=== PATIENT | female | born 1950 | race Hispanic/Latino ===

== ENCOUNTER 2018-11-02 09:37 | Outpatient (CLI) | payer MEDICARE, OTHER ==
--- NOTE | 2018-11-02 12:45 | ULT ---
LEFT BREAST ULTRASOUND LIMITED: HISTORY: A 68-year-old female with a history of left breast pain near the region of the nipple. TECHNIQUE: Ultrasound examination performed of the left breast with attention to the retroareolar region. FINDINGS: There is dense echogenic breast tissue. No solid or cystic mass or abnormal fluid collection. IMPRESSION: Unremarkable left breast ultrasound with attention to the retroareolar region. No solid or cystic ma ss or abnormal fluid collection or other acute process. BI-RADS category 2-Benign findings. Continued annual follow-up mammograms. POS: OFF
== END 2018-11-02 09:38 | disposition home or self-care (01) ==
LOC: BICMAMMO 09:37
PROVIDERS: ATTEND Surgery
DX: N64.4 Mastodynia (principal); Z98.82 Breast implant status
CPT/HCPCS: 76642; 77066; G0279

== ENCOUNTER 2019-04-26 17:28 | Emergency (ER) | payer MEDICARE, OTHER ==
--- NOTE | 2019-04-26 20:45 | ULT ---
EXAM: Left lower extremity venous ultrasound HISTORY: Left lower extremity pain for 3 days COMPARISON: None TECHNIQUE: Multiplanar grayscale and color Doppler images were obtained in a left lower extremity momo ous ultrasound. Spectral analysis of the Doppler waveforms were performed. FINDINGS: The common femoral vein, profunda femoral vein, superficial femoral vein, and popliteal vei n are normal in appearance without visible thrombus. These vessels demonstrate normal compression, flow, and augmentation. The posterior tibial vein and greater saphenous vein are patent without evidence of thrombus. IMPRESSION: No evidence of DVT.
== END 2019-04-26 21:23 | disposition home or self-care (01) ==
LOC: ERS 17:28
DX: M79.89 Other specified soft tissue disorders (principal)
CPT/HCPCS: 36415; 80053; 80061; 81001; 82306; 85025; 85379

== ENCOUNTER 2019-09-12 10:12 | Outpatient (CLI) | payer MEDICARE, OTHER ==
--- NOTE | 2019-09-12 10:27 | RAD ---
XR Chest Pa Lat STANDARD HISTORY: Cough COMPARISON: None FINDINGS: The heart size is normal. The lungs are well expanded without focal areas of consolidation, pneumothorax or pleural effusions. IMPRESSION: No radiographic evidence of acute cardiopulmonary process.
== END 2019-09-12 10:13 | disposition home or self-care (01) ==
LOC: BICRAD 10:12
PROVIDERS: ATTEND Physician Assistant
DX: R05 Cough (principal)
CPT/HCPCS: 71046

== ENCOUNTER 2020-01-02 11:29 | Outpatient (CLI) | payer MEDICARE, OTHER ==
--- NOTE | 2020-01-02 12:03 | RAD ---
XR Chest Pa Lat STANDARD History: Cough Comparison: Radiograph August 2019 Findings: Lungs are clear. No pneumothorax or effusion. Cardiac silhouette and mediastinal contours a re similar. Mild reverse S-shaped scoliosis thoracolumbar spine. No acute osseous abnormality. Impression: No acute intrathoracic abnormality.
--- NOTE | 2020-01-02 12:05 | RAD ---
XR Thoracic Spine 3 V STANDARD History: Pain in thoracic spine Comparison: None. Findings: Mild reverse S-shaped scoliosis of lumbar spine. There is levoscoliosis of 17 degrees measu red from the inferior endplate of T1 to the inferior endplate of T5. Low-grade dextroscoliosis thoracolumbar junction measuring 4 degrees from the inferior endplate of T9 to the inferior endplate of L1. Impression: Mild reverse S-shaped scoliosis thoracolumbar spine as described. No acute fracture.
== END 2020-01-02 11:30 | disposition home or self-care (01) ==
LOC: BICRAD 11:29
PROVIDERS: ATTEND Physician Assistant
DX: M54.6 Pain in thoracic spine (principal); G89.29 Other chronic pain; R05 Cough; M41.9 Scoliosis, unspecified
CPT/HCPCS: 71046; 72072

== ENCOUNTER 2020-01-12 09:08 | Outpatient (CLI) | payer MEDICARE, OTHER ==
--- NOTE | 2020-01-12 11:08 | MRI ---
MR OF THE THORACIC SPINE WITHOUT CONTRAST INDICATION: Thoracic spine pain TECHNIQUE: Multiplanar multisequence MR images were obtained of the thoracic spine without contrast. Spine count series was provided. COMPARISON: Thoracic spine radiograph dated January 12, 2020 FINDINGS: Bone marrow signal intensity: Normal Spinal alignment: There is a mild S-shaped thoracolumbar scoliotic curve. Spinal alignment in the sag ittal projection is within normal limits. Spinal cord: Normal signal intensity and contour. Paravertebral soft tissues: Normal Vertebral levels: T1-T2: No appreciable central canal or neural foraminal narrowing is evident. T2-T3: No appreciable central canal or neural foraminal narrowing. T3-T4: No appreciable central canal or neural foraminal narrowing.. T4-T5: No appreciable central canal or neural foraminal narrowing. T5-T6: No appreciable central canal or neural foraminal narrowing. T6-T7: No appreciable central canal or neural foraminal narrowing. T7-T8: No appreciable central canal or neural foraminal narrowing. T8-T9: No appreciable central canal or neural foraminal narrowing. T9-T10: No appreciable central canal or neural foraminal narrowing. T10-T11: No appreciable central canal or neural foraminal narrowing. T11-T12: No appreciable central canal or neural foraminal narrowing. T12-L1: No appreciable central canal or neural foraminal narrowing. Additional findings: None. IMPRESSION: 1. No appreciable central canal or neural foraminal narrowing. 2. Mild S-shaped thoracolumbar scoliotic curve.
== END 2020-01-12 09:09 | disposition home or self-care (01) ==
LOC: BICMRI 09:08
PROVIDERS: ATTEND Physician Assistant
DX: M54.6 Pain in thoracic spine (principal); G89.29 Other chronic pain; M41.24 Other idiopathic scoliosis, thoracic region
CPT/HCPCS: 72146

== ENCOUNTER 2020-05-29 09:29 | Outpatient (CLI) | payer MEDICARE, OTHER ==
--- NOTE | 2020-05-29 10:38 | BD ---
EXAM: DEXA bone density examination HISTORY: 69-year-old postmenopausal female for screening COMPARISON: None FINDINGS: L1--bone mineral density 0.946 g/sq cm; T score -0.4 L2--bone mineral density 1.077 g/sq cm; T score 0.4 L3--bone mineral density 1.101 g/sq cm; T score 0.2 L4--bone mineral density 1.087 g/sq cm; T score 0.2 Total L1-L4--bone mineral density 1.056 g/sq cm; T score 0.1 Left femoral neck--bone mineral density0.838; T score -0.1 Total proximal left femur--bone mineral density 0.967; T score 0.2 IMPRESSION: Normal bone density.
--- NOTE | 2020-05-29 12:30 | MMO ---
Bilateral MAMMO Bilat Screen DDI+TOÑO. CLINICAL HISTORY: Patient is 69 years old and is seen for screening. The patient has no family history of breast cancer. The patient has no personal history of cancer. The patient has a history of bilateral Implants in 2013 - replaced and bilateral Implants in 2003. VIEWS: The views performed were: bilateral craniocaudal; bilateral mediolateral oblique; and bilateral Implant displaced with tomosynthesis. FILMS COMPARED: The present examination has been compared to prior imaging studies performed at [facility] on 11/02/2018, and at [facility] on 02/18/2016. This study has been interpreted with the assistance of computer-aided detection. MAMMOGRAM FINDINGS: The breasts are extremely dense, which may lower the sensitivity of mammography. Finding 1: There are stable benign appearing calcifications seen in both breasts. Finding 2: There is a nodule measuring 7 millimeters with obscured margins seen in the CC view only seen in the outer region of the left breast. Finding 3: There is a nodule measuring 4 millimeters with circumscribed margins seen in the MLO view only seen in the upper region of the left breast. IMPRESSION: FINDING 1: STABLE CALCIFICATIONS IN BOTH BREASTS ARE BENIGN. FINDING 2: NODULE IN THE OUTER REGION OF THE LEFT BREAST REQUIRES ADDITIONAL EVALUATION. ADDITIONAL PROJECTIONS (LEFT MEDIOLATERAL AND LEFT EXAGGERATED CRANIOCAUDAL SPOT COMPRESSION) ARE RECOMMENDED. AN ULTRASOUND EXAM IS RECOMMENDED IF NEEDED. ADDITIONAL IMAGING. FINDING 3: NODULE IN THE UPPER REGION OF THE LEFT BREAST REQUIRES ADDITIONAL EVALUATION. ADDITIONAL PROJECTIONS (LEFT MEDIOLATERAL OBLIQUE SPOT COMPRESSION AND LEFT MEDIOLATERAL) ARE RECOMMENDED. AN ULTRASOUND EXAM IS RECOMMENDED IF NEEDED. ADDITIONAL IMAGING. THE RESULTS OF THIS EXAM WERE SENT TO THE PATIENT. ACR BI-RADS Category 0 - Incomplete: Need additional imaging evaluation. [facility] will notify the patient of the need for additional imaging services. MAMMOGRAPHY NOTE: 1. A negative mammogram report should not delay a biopsy if a dominant of clinically suspicious mass is present. 2. Approximately 10% to 15% of breast cancers are not detected by mammography. 3. Adenosis and dense breasts may obscure an underlying neoplasm. Reported by: CHAGO CULLEN MD Electonically Signed: [id number]
== END 2020-05-29 09:30 | disposition home or self-care (01) ==
LOC: BICMAMMO 09:29
PROVIDERS: ATTEND Physician Assistant
DX: Z12.31 Encounter for screening mammogram for malignant neoplasm of breast (principal); Z13.820 Encounter for screening for osteoporosis; R92.1 Mammographic calcification found on diagnostic imaging of breast; N63.10 Unspecified lump in the right breast, unspecified quadrant; N63.20 Unspecified lump in the left breast, unspecified quadrant; Z78.0 Asymptomatic menopausal state; Z98.82 Breast implant status
CPT/HCPCS: 77063; 77067; 77080

== ENCOUNTER 2020-05-30 12:27 | Outpatient (CLI) | payer MEDICARE, OTHER ==
--- NOTE | 2020-05-30 13:50 | MMO ---
Left Breast MAMMO Unilat Diag DDI LT+TOÑO. CLINICAL HISTORY: Patient is 69 years old and is seen for additional evaluation requested from prior study. The patient has no family history of breast cancer. The patient has no personal history of cancer. The patient has a history of bilateral Implants in 2013 - replaced and bilateral Implants in 2003. VIEWS: The views performed were: left craniocaudal spot compression with tomosynthesis; left mediolateral oblique spot compression with tomosynthesis; left mediolateral with tomosynthesis; and left Implant displaced with tomosynthesis. FILMS COMPARED: The present examination has been compared to prior imaging studies performed at [facility] on 11/02/2018, 05/29/2020 and 05/30/2020, and at [facility] on 02/18/2016. This study has been interpreted with the assistance of computer-aided detection. MAMMOGRAM FINDINGS: The breast is extremely dense, which may lower the sensitivity of mammography. The mass seen at screening mammography is not visualized on the additional imaging performed. Ultrasound interrogation of the region of mammographic concern on the screening study demonstrates a hypoechoic mass that likely corresponds to the mammogram finding. IMPRESSION: FINDING IN THE LEFT BREAST IS SUSPICIOUS. AN ULTRASOUND-GUIDED BREAST BIOPSY IS RECOMMENDED. RESULTS AND RECOMMENDATIONS DISCUSSED WITH THE PATIENT AND QUESTIONS ANSWERED. THE RESULTS OF THIS EXAM WERE SENT TO THE PATIENT. ACR BI-RADS Category 4 - Suspicious abnormality - biopsy should be considered MAMMOGRAPHY NOTE: 1. A negative mammogram report should not delay a biopsy if a dominant of clinically suspicious mass is present. 2. Approximately 10% to 15% of breast cancers are not detected by mammography. 3. Adenosis and dense breasts may obscure an underlying neoplasm. Reported by: ALICE LEAL MD Electonically Signed: [id number]
--- NOTE | 2020-05-30 13:50 | ULT ---
EXAM: US Breast Limited Lt PROVIDED CLINICAL HISTORY: Abnormal mammogram COMPARISON: Concurrently performed diagnostic mammogram and screening mammogram of 05/29/2020 FINDINGS: Limited sonographic interrogation of the left breast in the region of mammographic concern was perfor med. There is a hypoechoic mass with slightly irregular borders at the 11:00 position of the left breast measuring approximately 5 to 6 mm, likely corresponding to the mammogram finding. This is imme diately superficial to the left breast implant capsule. IMPRESSION: Hypoechoic mass is demonstrated, for which ultrasound-guided biopsy is recommended. Results and recom mendations discussed with the patient and questions answered. BI-RADS 4 -- suspicious abnormality, biopsy recommended
== END 2020-05-30 12:28 | disposition home or self-care (01) ==
LOC: BICMAMMO 12:27
PROVIDERS: ATTEND Physician Assistant
DX: R92.8 Other abnormal and inconclusive findings on diagnostic imaging of breast (principal); N63.22 Unspecified lump in the left breast, upper inner quadrant; Z98.82 Breast implant status
CPT/HCPCS: 76642; 77065; G0279

== ENCOUNTER 2020-10-29 11:08 | Emergency (ER) | payer MEDICARE, OTHER ==
--- NOTE | 2020-10-29 14:22 | RAD ---
PORTABLE CHEST: INDICATION: Fever, cough. COMPARISON: 01/02/2020. FINDINGS: There are diffuse bilateral patchy and hazy infiltrates more prominent in the mid and lower lung fiel ds bilaterally. Heart and mediastinum unremarkable. IMPRESSION: Bilateral infiltrates. POS: AGW
[2020-10-29] MEDS ORDERED: Ketorolac Tromethamine 30 MG/ML VIAL ONE (16:14)
[2020-10-29] MEDS ORDERED: Dexamethasone 4 mg/ml Vial ONE (16:14)
[2020-10-29 16:15] LABS: Hemoglobin 12.3 g/dL (12.0-16.0); Mean Corpuscular HGB CONC 32.4 g/dL (32.0-36.0); Mean Corpuscular Hemoglobin 29.8 pg (27.0-31.0); Mean Corpuscular Volume 91.8 fL (78.0-98.0); Mean Platelet Volume 7.5 fL (7.4-10.4); Platelet Count 297 thou/uL (130-400); RBC Distribution Width 12.3 % (11.5-14.5); Red Blood Cell (RBC) Count 4.14 mill/uL (4.20-5.40); White Blood Cell (WBC) Count 4.5 thou/uL (4.8-10.8)
[2020-10-29 16:33] LABS: Band 25 % (5-11); Lymphocytes 10 % (21-51); MDiff Complete? YES; Metamyelocyte 1 % (0-0); Monocytes 18 % (0-10); Myelocyte 1 % (0-0); Neutrophil 38 % (42-75); Platelet Morphology Comment Appears Adequate; Polychromasia SLIGHT = 2-3 cells (100X) (0-2/hpf); Reactive Lymphocytes 7 % (0-10)
[2020-10-29 16:35] LABS: ALT (SGPT) 34 U/L (8-55); AST (SGOT) 31 U/L (5-34); Albumin 3.5 g/dL (3.4-4.8); Alkaline Phosphatase 331 U/L (40-110); Anion Gap 15 mmol/L (10-20); BUN (Urea Nitrogen) 14 mg/dL (9.8-20.1); Bilirubin, Total 0.5 mg/dL (0.2-1.2); Calc. Creatinine Clearance 0 mL/min (70-130); Calcium 8.2 mg/dL (7.8-10.44); Carbon Dioxide 28 mmol/L (23-31); Chloride 97 mmol/L (98-107); Globulin 3.2 g/dL (2.4-3.5); Glucose 101 mg/dL (80-115); Potassium 4.1 mmol/L (3.5-5.1); Protein, Total 6.7 g/dL (6.0-8.3); Sodium 136 mmol/L (136-145)
[2020-10-29] MEDS ORDERED: Ondansetron PF 4 MG/2 ML Vial ONE (16:57)
== END 2020-10-29 17:08 | disposition home or self-care (01) ==
LOC: ERS 11:08
DX: U07.1 COVID-19 (principal); J12.82 Pneumonia due to coronavirus disease 2019
CPT/HCPCS: 36415; 71045; 80053; 85025; 93005; 96374; 96375; J1100; J1885; J2405

== ENCOUNTER 2020-11-01 12:48 | Inpatient (IN) | payer MEDICARE, OTHER ==
[2020-11-01 13:34] LABS: Hemoglobin 13.7 g/dL (12.0-16.0); Mean Corpuscular HGB CONC 33.3 g/dL (32.0-36.0); Mean Corpuscular Volume 90.3 fL (78.0-98.0); Mean Platelet Volume 7.6 fL (7.4-10.4); Platelet Count 548 thou/uL (130-400); RBC Distribution Width 12.3 % (11.5-14.5); Red Blood Cell (RBC) Count 4.56 mill/uL (4.20-5.40); White Blood Cell (WBC) Count 10.9 thou/uL (4.8-10.8)
[2020-11-01] MEDS ORDERED: cefTRIAXone\\ROCEPHIN 1 GM VIAL ONE (13:37)
[2020-11-01] MEDS ORDERED: Ondansetron PF 4 MG/2 ML Vial ONE ×2 (13:37→16:59)
[2020-11-01] MEDS ORDERED: Azithromycin 500 MG VIAL ONE (13:37)
--- NOTE | 2020-11-01 13:45 | RAD ---
Chest one view HISTORY: Dyspnea. COMPARISON: 10/29/2020. FINDINGS: Cardiac silhouette is magnified by projection. Pulmonary vasculature are unremarkable. Mediastinum is midline. Ill-defined patchy predominantly peripheral areas of infiltrate throughout ea ch lung are similar in appearance to the prior exam. No lobar consolidation. No evidence of pneumothorax. IMPRESSION : Multifocal pneumonia. Stable appearance.
[2020-11-01] MEDS ORDERED: Iopamidol-370 76% 500 ML 1 ML ONE (13:55)
[2020-11-01 13:56] LABS: ALT (SGPT) 32 U/L (8-55); AST (SGOT) 32 U/L (5-34); Albumin 3.6 g/dL (3.4-4.8); Alkaline Phosphatase 291 U/L (40-110); Anion Gap 16 mmol/L (10-20); BUN (Urea Nitrogen) 18 mg/dL (9.8-20.1); Bilirubin, Total 0.4 mg/dL (0.2-1.2); Calc. Creatinine Clearance 0 mL/min (70-130); Calcium 8.7 mg/dL (7.8-10.44); Carbon Dioxide 26 mmol/L (23-31); Chloride 99 mmol/L (98-107); Globulin 3.8 g/dL (2.4-3.5); Glucose 115 mg/dL (80-115); Potassium 3.3 mmol/L (3.5-5.1); Protein, Total 7.4 g/dL (6.0-8.3); Sodium 138 mmol/L (136-145)
[2020-11-01 14:04] LABS: Band 3 % (5-11); Lymphocytes 14 % (21-51); MDiff Complete? YES; Metamyelocyte 2 % (0-0); Monocytes 15 % (0-10); Myelocyte 3 % (0-0); Neutrophil 63 % (42-75); Platelet Morphology Comment Appears Increased; RBC Morphology Normal
--- NOTE | 2020-11-01 15:27 | CT ---
CT ANGIOGRAM THORAX WITH IV CONTRAST AND 3-D RECONSTRUCTIONS CLINICAL INDICATION: Covid positive on 10/17/2020. Agent now reports worsening shortness of breath/dyspnea with dizziness and vomiting. COMPARISON: None FINDINGS: Pulmonary arteries: No filling defects are seen in the pulmonary arteries to suggest a pulmonary embo nick. Aorta: Minimal vascular calcifications. Thoracic aorta is normal in caliber without evidence of an ao rtic dissection. Lungs: Minimal bilateral pleural effusions are seen. There are scattered groundglass and patchy paren chymal airspace opacities seen bilaterally and diffusely throughout the lungs in a peripheral predominance in a pattern most suggestive of Covid pneumonia. The large airways are patent. Mediastinum: Trace pericardial effusion is present. No enlarged lymph nodes are seen by CT size crite farheen. Thyroid gland: Grossly normal in appearance where imaged. Osseous structures: Degenerative changes are seen in the spine. No suspicious lytic or sclerotic osse ous lesions are identified. Chest wall: Partial visualization of bilateral breast prostheses. Upper abdomen: Within normal limits for phase of imaging. IMPRESSION: 1. Covid pneumonia. 2. Minimal bilateral pleural effusions. 3. Trace pericardial effusion. 4. No CT evidence for pulmonary embolus.
[2020-11-01] MEDS ORDERED: Acetaminophen 650 MG Suppository PR PRN (16:55)
[2020-11-01] MEDS ORDERED: Albuterol Sulfate 2.5 mg/3 ml Neb NEB PRN (16:58)
[2020-11-01] MEDS ORDERED: Dexamethasone 10 MG/ML VIAL ONE (16:59)
[2020-11-01] MEDS ORDERED: Enoxaparin Sodium 40 MG/0.4 ML SYRINGE SC SCH (17:00)
[2020-11-01] MEDS ORDERED: PROVENTIL INHALER 6.7 G (200 INHALATIONS) INH PRN (17:15)
[2020-11-01] MEDS ORDERED: Dexamethasone 4 mg/ml Vial SLOW IVP SCH (17:15)
--- NOTE | 2020-11-01 17:24 | PDOC.HHP ---
Hospitalist HPI - History of Present Illness History of Present Illness: ADMISSION DATE: 11/01/2020 TIME OF ASSESSMENT: 1600 PRIMARY CARE PHYSICIAN: Alfredito Choi PA-C CHIEF COMPLAINT: Shortness of breath HPI: This is a 70-year-old woman who presents to the emergency department with complaints of progressively worsening shortness of breath. The patient states that her oxygen levels at home dropped to 88%. She states she first became unwell with a fever on 10/17/2020 and underwent Covid testing which came back positive. She has had an occasional cough but states it is mild and nonprod uctive. Denies any hemoptysis or chest pain. She does report having no shortness of breath before prompting a visit to the emergency department 3 days ago at which time she was prescribed azithromycin and a Medrol Dosepak as well as Tessalon Perles for her cough. The patient states that her symptoms continue to worsen and so she was seen by her primary care provider yesterday and was started on nebulizer treatments. The patient states that she has not noted any improvement and became concerned when she became hypoxic at home today. For some time she was using her 's supplemental oxygen which he received after being treated for Covid pneumonia. At present the patient states that she feels well as long as she is not moving about or speaking for long periods of time. States that she has been feeling lightheaded with minimal exertion. Again denies having any chest pain. She r eports having loose stools 3 days ago but that has resolved. She has had issues tolerating oral intake for the last 4 days and has had vomiting with any think she attempts to eat including Jell-O. Denies any urinary symptoms. No recent fevers chills or sweats but has general aching. ED COURSE: At initial presentation patient had sats of 86% on room air. She was placed on 3 L of O2 by nasal cannula and her sats improved to 96%. She has been tachypneic between 22 and 30. Chest x-ray was done showing multifocal pneumonia. Laboratory studies showed a white cell count of 10.9, hemoglobin 13.7, platelets 148, neutrophils 63, bands of 3. Lactic acid 1.2. Sodium 138, potassium 3.3, BUN 18, creatinine 0.72, GFR 80, alk phos 291, AST 32, ALT 32, total bilirubin n ormal. Glucose 115. D-dimer was elevated at 2.31. She subsequently underwent a CT angiogram of the chest which demonstrated Covid pneumonia, minimal bilateral pleural effusions and a trace pericardial effusion. No CT evidence for PE. She was started on IV antibiotics with Rocephin and azithromycin. She was given 10 mg of dexamethasone IV and received 1 L of normal saline. For nausea she rec eived ondansetron 4 mg IV x2. PAST MEDICAL HISTORY: 1. History of breast cancer PAST SURGICAL HISTORY: 1. Left lumpectomy 2. Neuroma removed from left foot 3. Breast augmentation in 2019 SOCIAL HISTORY: Patient denies any history of alcohol consumption, tobacco use or drug use. She lives at home with her . She is fully independent at baseline. FAMILY HISTORY: Noncontributory ALLERGIES: No known drug allergies CURRENT MEDICATIONS: 1. Azithromycin 2. Medrol dose back 3. Albuterol nebs 4. Tessalon Perles 5. Zofran ODT 6. Ibuprofen - Exam General Appearance: NAD General - other findings: VS: Temp 97.6, BP 158/90, HR 69, RR 25, O2 sat 96% on 2 L by nasal cannula Eye: PERRL, anicteric sclera ENT: normocephalic atraumatic, no oropharyngeal lesions, dry oral mucosa Neck: supple, no lymphadenopathy Heart: RRR, normal peripheral pulses Respiratory: CTAB, no wheezes, no rales, no ronchi, normal chest expansion Gastrointestinal: soft, non-tender, non-distended, normal bowel sounds Extremities: no edema Skin: normal turgor, no lesions, no rashes Neurological: cranial nerve grossly intact, normal sensation to touch, no weakness Musculoskeletal: normal tone, normal strength, no muscle wasting Psychiatric: normal affect, normal behavior, A&O x 3 Hospitalist Results - Labs Result Diagrams: 11/01/20 13:09 11/01/20 13:09 Lab results: WBC 10.9 thou/uL (4.8-10.8) H 11/01/20 13:09 Hgb 13.7 g/dL (12.0-16.0) 11/01/20 13:09 Hct 41.2 % (36.0-47.0) 11/01/20 13:09 MCV 90.3 fL (78.0-98.0) 11/01/20 13:09 Plt Count 548 thou/uL (130-400) H 11/01/20 13:09 Band Neuts % (Manual) 3 % (5-11) L 11/01/20 13:09 Sodium 138 mmol/L (136-145) 11/01/20 13:09 Potassium 3.3 mmol/L (3.5-5.1) L 11/01/20 13:09 Chloride 99 mmol/L (98-107) 11/01/20 13:09 Carbon Dioxide 26 mmol/L (23-31) 11/01/20 13:09 BUN 18 mg/dL (9.8-20.1) 11/01/20 13:09 Creatinine 0.72 mg/dL (0.6-1.1) 11/01/20 13:09 Glucose 115 mg/dL (80-115) 11/01/20 13:09 Lactic Acid 1.2 mmol/L (0.5-2.2) 11/01/20 14:00 Calcium 8.7 mg/dL (7.8-10.44) 11/01/20 13:09 Total Bilirubin 0.4 mg/dL (0.2-1.2) 11/01/20 13:09 AST 32 U/L (5-34) 11/01/20 13:09 ALT 32 U/L (8-55) 11/01/20 13:09 Alkaline Phosphatase 291 U/L (40-110) H 11/01/20 13:09 Troponin I Less than 0.010 ng/mL (< 0.028) 11/01/20 13:09 Serum Total Protein 7.4 g/dL (6.0-8.3) 11/01/20 13:09 Albumin 3.6 g/dL (3.4-4.8) 11/01/20 13:09 - Radiology Interpretation CT scan - chest Status: report reviewed by sd Hospitalist H&P A/P - Problem (1) Hypoxia Code(s): R09.02 - HYPOXEMIA Status: Acute (2) Pneumonia due to COVID-19 virus Code(s): U07.1 - COVID-19; J12.82 - PNEUMONIA DUE TO CORONAVIRUS DISEASE 2019 Status: Acute (3) Nausea & vomiting Code(s): R11.2 - NAUSEA WITH VOMITING, UNSPECIFIED Status: Acute (4) Hypokalemia Code(s): E87.6 - HYPOKALEMIA Status: Acute (5) Pericardial effusion Code(s): I31.3 - PERICARDIAL EFFUSION (NONINFLAMMATORY) Status: Acute (6) History of breast cancer Code(s): Z85.3 - PERSONAL HISTORY OF MALIGNANT NEOPLASM OF BREAST Status: Chronic - Plan Plan: Acute hypoxia secondary to COVID penumonia (sats of 86% on RA on arrival to ED) She is outside the window for Remdesivir. Continue IV antibiotics and steroids Albuterol inhalers Vitamin C and Zinc Monitor inflammatory markers Continuous O2 sat monitoring Trace pericardial effusion Check BNP If develops chest pain or worsening SOB may need Echo Not ordered at this time due to COVID status Nausea/Vomiting Clear liquid diet, advance as tolerated Continue anti-emetics Hypokalemia Replacement ordered Monitor lytes including Mg+ GI Prophylaxis with Famotidine DVT Prophylaxis with Lovenox CODE STATUS FULL
[2020-11-01 17:41] LABS: Troponin I Less than 0.010 ng/mL (< 0.028)
[2020-11-01] MEDS ORDERED: Potassium Chloride 20 MEQ in Premix Bag 1 BAG IVPB SCH (17:45)
[2020-11-01 19:00] LABS: Bilirubin Negative (Negative); Blood, Urine Negative (Negative); Clarity Clear (Clear); Glucose, Urine (Dipstick) Normal (Negative); Ketone, Urine Negative (Negative); Leukocyte Negative Leu/uL (Negative); Nitrite Negative (Negative); Protein, Urine (Dipstick) Negative (Neg-Trace); Specific Gravity, Urine 1.012 (1.002-1.036); Urobilinogen Normal mg/dL (Less than 2)
[2020-11-01] MEDS ORDERED: Promethazine HCl 25 MG/ML VIAL ONE (19:20)
[2020-11-01 20:01] LABS: Troponin I Less than 0.010 ng/mL (< 0.028)
[2020-11-01 22:56] VITALS: BMI 22.1
[2020-11-01] MEDS: Famotidine/PF 20 mg/2ml Vial SLOW IVP SCH (23:32)
[2020-11-01] MEDS: Acetaminophen 325 MG TAB PO PRN (23:41)
[2020-11-01] MEDS: Ondansetron PF 4 MG/2 ML Vial IVP PRN (23:41)
[2020-11-02] MEDS ORDERED: Zolpidem Tartrate 5 MG TAB PO SCH (02:15)
[2020-11-02] MEDS: Azithromycin 500 MG in Sodium Chloride 0.9% 250 ML 250 ML IVPB SCH (03:39)
[2020-11-02] MEDS: Ondansetron PF 4 MG/2 ML Vial IVP PRN ×3 (06:09→21:14)
[2020-11-02 06:34] LABS: Hemoglobin 12.8 g/dL (12.0-16.0); Mean Corpuscular HGB CONC 33.3 g/dL (32.0-36.0); Mean Corpuscular Hemoglobin 30.1 pg (27.0-31.0); Mean Corpuscular Volume 90.4 fL (78.0-98.0); Mean Platelet Volume 7.3 fL (7.4-10.4); Platelet Count 512 thou/uL (130-400); RBC Distribution Width 12.2 % (11.5-14.5); Red Blood Cell (RBC) Count 4.27 mill/uL (4.20-5.40)
[2020-11-02 06:42] LABS: Lactic Acid 0.8 mmol/L (0.5-2.2)
[2020-11-02 06:45] LABS: Anion Gap 12 mmol/L (10-20); BUN (Urea Nitrogen) 11 mg/dL (9.8-20.1); Calc. Creatinine Clearance 76 mL/min (70-130); Calcium 8.4 mg/dL (7.8-10.44); Carbon Dioxide 30 mmol/L (23-31); Chloride 100 mmol/L (98-107); Glucose 105 mg/dL (80-115); Potassium 4.4 mmol/L (3.5-5.1); Sodium 138 mmol/L (136-145)
[2020-11-02 08:11] LABS: Band 10 % (5-11); Lymphocytes 13 % (21-51); MDiff Complete? YES; Metamyelocyte 1 % (0-0); Monocytes 10 % (0-10); Neutrophil 61 % (42-75); Platelet Morphology Comment Appears Increased; RBC Morphology Normal; Reactive Lymphocytes 5 % (0-10)
[2020-11-02] MEDS: Ascorbic Acid 500 mg Chewable Tablet PO SCH (09:03)
[2020-11-02] MEDS: Famotidine/PF 20 mg/2ml Vial SLOW IVP SCH ×2 (09:03→21:14)
[2020-11-02] MEDS: Dexamethasone 4 mg/ml Vial SLOW IVP SCH (09:04)
[2020-11-02] MEDS: Enoxaparin Sodium 40 MG/0.4 ML SYRINGE SC SCH (09:04)
[2020-11-02] MEDS: Zinc Sulfate 220 MG CAP PO SCH (09:04)
--- NOTE | 2020-11-02 09:12 | PDOC.HOSPP ---
- Subjective Encounter Date: 11/02/20 Encounter Time: 10:39 Subjective: Patient seen and examined. No new complaints. No overnight events. Still endorses nausea, light headedness and diarrhea. Denies abdominal pain and vomiting. Denies fever, chills. Denies chest pain, heart palpitations or swell ing to LEs. - Objective Vital Signs & Weight: Vital Signs (12 hours) Temp Pulse Resp BP BP Pulse Ox 11/02/20 08:00 98.4 F 61 96 H 123/74 96 11/02/20 03:54 98.2 F 61 18 169/71 H 96 11/01/20 23:15 97 11/01/20 22:45 97.9 F 63 20 156/70 H 97 Weight Weight 128 lb 11.2 oz I&O: 11/01/20 11/02/20 11/03/20 06:59 06:59 06:59 Intake Total 400 Balance 400 Result Diagrams: 11/02/20 06:06 11/02/20 06:06 Hospitalist ROS - Review of Systems Constitutional: denies: fever, chills Respiratory: reports: cough, dry, shortness of breath (mild). denies: hemoptysis, sputum, wheezing Cardiovascular: reports: light headedness. denies: chest pain, palpitations, edema Gastrointestinal: reports: nausea, diarrhea. denies: vomiting, abdominal pain, constipation, melena, hematochezia Neurological: denies: incoordination, change in speech All other systems reviewed; all pertinent +/- noted in HPI/Subj - Medication Medications: Active Medications Generic Name Dose Route Start Last Admin Trade Name Wilian PRN Reason Stop Dose Admin Acetaminophen 650 mg 11/01/20 16:55 11/01/20 23:41 Acetaminophen 325 Mg Tab PO 650 mg Q4H PRN Administration Headache/Fever/Mild Pain (1-3) Ascorbic Acid 1,000 mg 11/02/20 09:00 11/02/20 09:03 Ascorbic Acid 500 Mg Chewable Tablet PO 1,000 mg DAILY ALF Administration Dexamethasone 6 mg 11/02/20 09:00 11/02/20 09:04 Dexamethasone 4 Mg/Ml Vial SLOW IVP 6 mg DAILY ALF Administration Enoxaparin Sodium 40 mg 11/02/20 09:00 11/02/20 09:04 Enoxaparin Sodium 40 Mg/0.4 Ml Syringe SC 40 mg 0900 ALF Administration Famotidine 20 mg 11/01/20 21:00 11/02/20 09:03 Famotidine/Pf 20 Mg/2ml Vial SLOW IVP 20 mg Q12HR ALF Administration Azithromycin 500 mg/ Sodium 250 mls @ 250 mls/hr 11/02/20 03:00 11/02/20 03:39 Chloride IVPB 250 mls Q24HR ALF Administration Ondansetron HCl 4 mg 11/01/20 23:31 11/02/20 06:09 Ondansetron Pf 4 Mg/2 Ml Vial IVP 4 mg Q6H PRN Administration Nausea/Vomiting Zinc Sulfate 220 mg 11/02/20 09:00 11/02/20 09:04 Zinc Sulfate 220 Mg Cap PO Not Given DAILY ALF - Exam General Appearance: NAD, awake alert. negative: ill appearing General - other findings: appears comfortable wearing NC 2L Eye: anicteric sclera ENT: normocephalic atraumatic Heart: RRR, no murmur, no gallops, no rubs, normal peripheral pulses Respiratory: CTAB, no wheezes, no rales, no ronchi, normal chest expansion Gastrointestinal: soft, non-tender, normal bowel sounds, no guarding, no rigidity Extremities: no cyanosis, no edema Skin: no rashes Neurological: no focal deficits Psychiatric: normal affect, A&O x 3 Hosp A/P (1) Acute respiratory failure with hypoxia Code(s): J96.01 - ACUTE RESPIRATORY FAILURE WITH HYPOXIA Status: Acute (2) Pneumonia due to COVID-19 virus Code(s): U07.1 - COVID-19; J12.82 - PNEUMONIA DUE TO CORONAVIRUS DISEASE 2019 Status: Acute (3) Pericardial effusion Code(s): I31.3 - PERICARDIAL EFFUSION (NONINFLAMMATORY) Status: Acute (4) Nausea & vomiting Code(s): R11.2 - NAUSEA WITH VOMITING, UNSPECIFIED Status: Acute (5) Hypokalemia Code(s): E87.6 - HYPOKALEMIA Status: Acute (6) History of breast cancer Code(s): Z85.3 - PERSONAL HISTORY OF MALIGNANT NEOPLASM OF BREAST Status: Chronic - Plan Plan: Acute hypoxia secondary to COVID penumonia (sats of 86% on RA on arrival to ED) Not a candidate for remdesivir, testing Covid + on 10/17/2020. Continue IV antibiotics and steroids Albuterol inhalers Vitamin C and Zinc, add vitamin D Add mucinex-DM Monitor inflammatory markers Continuous O2 sat monitoring Trace pericardial effusion sp02 96% on 2L NC. BNP 46. Consider echo if worsening SOB. Nausea/Vomiting Endorses nausea, no vomiting. Zofran prn Hypokalemia Was 3.3, currently 4.4 Check Mag level. Continue Famotidine for GI prophylaxis. Continue LMWH for DVT prophylaxis. CODE STATUS FULL Discussed with attending physician, Dr. Howard.
[2020-11-02] MEDS: Acetaminophen 325 MG TAB PO PRN (09:16)
[2020-11-02] MEDS ORDERED: Guaifenesin DM 100-10/5 ML UDCUP PO PRN (10:38)
[2020-11-02] MEDS: cefTRIAXone\\ROCEPHIN 1 GM in Sodium Chloride 0.9% 100 ML IVPB SCH (16:00)
[2020-11-02] MEDS: Zolpidem Tartrate 5 MG TAB PO SCH (21:14)
[2020-11-03] MEDS: Azithromycin 500 MG in Sodium Chloride 0.9% 250 ML 250 ML IVPB SCH (02:24)
[2020-11-03 07:11] LABS: Anion Gap 12 mmol/L (10-20); BUN (Urea Nitrogen) 11 mg/dL (9.8-20.1); Calc. Creatinine Clearance 76 mL/min (70-130); Calcium 8.1 mg/dL (7.8-10.44); Carbon Dioxide 28 mmol/L (23-31); Chloride 100 mmol/L (98-107); Glucose 85 mg/dL (80-115); Magnesium 2.2 mg/dL (1.6-2.6); Potassium 3.6 mmol/L (3.5-5.1); Sodium 136 mmol/L (136-145)
[2020-11-03 07:39] LABS: Hemoglobin 12.5 g/dL (12.0-16.0); Mean Corpuscular HGB CONC 33.4 g/dL (32.0-36.0); Mean Corpuscular Hemoglobin 30.1 pg (27.0-31.0); Mean Corpuscular Volume 90.1 fL (78.0-98.0); Mean Platelet Volume 7.2 fL (7.4-10.4); Platelet Count 562 thou/uL (130-400); RBC Distribution Width 12.2 % (11.5-14.5); Red Blood Cell (RBC) Count 4.15 mill/uL (4.20-5.40); White Blood Cell (WBC) Count 8.3 thou/uL (4.8-10.8)
--- NOTE | 2020-11-03 08:29 | PDOC.HOSPP ---
- Subjective Encounter Date: 11/03/20 Encounter Time: 09:30 Subjective: Patient seen and examined. No new complaints. No overnight events. Reports nausea resolved. Still endorses feeling mildly short of breath. Denies chest pain, heart palps and wheezing. Denies fever or chills. Asking if she can go home tomorrow. - Objective Vital Signs & Weight: Vital Signs (12 hours) Temp Pulse Resp BP BP Pulse Ox 11/03/20 07:50 98.2 F 68 17 128/75 92 L 11/03/20 04:00 98.2 F 77 16 128/76 96 Weight Admit Weight 128 lb 11.2 oz Weight 128 lb 11.2 oz I&O: 11/02/20 11/03/20 11/04/20 06:59 06:59 06:59 Intake Total 400 100 Balance 400 100 Result Diagrams: 11/03/20 06:37 11/03/20 06:37 Hospitalist ROS - Review of Systems Constitutional: denies: fever, chills Respiratory: reports: cough (intermittent, non productive), shortness of breath (mild) Cardiovascular: denies: chest pain, palpitations, edema, light headedness Gastrointestinal: denies: nausea, vomiting, abdominal pain, melena, hematochezia Skin: denies: rash Neurological: denies: weakness, change in speech All other systems reviewed; all pertinent +/- noted in HPI/Subj - Medication Medications: Active Medications Generic Name Dose Route Start Last Admin Trade Name Freq PRN Reason Stop Dose Admin Acetaminophen 650 mg 11/01/20 16:55 11/02/20 09:16 Acetaminophen 325 Mg Tab PO 650 mg Q4H PRN Administration Headache/Fever/Mild Pain (1-3) Ascorbic Acid 1,000 mg 11/02/20 09:00 11/02/20 09:03 Ascorbic Acid 500 Mg Chewable Tablet PO 1,000 mg DAILY ALF Administration Dexamethasone 6 mg 11/02/20 09:00 11/02/20 09:04 Dexamethasone 4 Mg/Ml Vial SLOW IVP 6 mg DAILY ALF Administration Enoxaparin Sodium 40 mg 11/02/20 09:00 11/02/20 09:04 Enoxaparin Sodium 40 Mg/0.4 Ml Syringe SC 40 mg 09 ALF Administration Famotidine 20 mg 11/01/20 21:00 11/02/20 21:14 Famotidine/Pf 20 Mg/2ml Vial SLOW IVP 20 mg Q12HR ALF Administration Azithromycin 500 mg/ Sodium 250 mls @ 250 mls/hr 11/02/20 03:00 11/03/20 02:24 Chloride IVPB 250 mls Q24HR ALF Administration Ceftriaxone Sodium 1 gm/ 100 mls @ 200 mls/hr 11/02/20 14:00 11/02/20 16:00 Sodium Chloride IVPB 100 mls Q24HR ALF Administration Ondansetron HCl 4 mg 11/01/20 23:31 11/02/20 21:14 Ondansetron Pf 4 Mg/2 Ml Vial IVP 4 mg Q6H PRN Administration Nausea/Vomiting Zinc Sulfate 220 mg 11/02/20 09:00 11/02/20 09:04 Zinc Sulfate 220 Mg Cap PO Not Given DAILY ALF Zolpidem Tartrate 10 mg 11/02/20 21:00 11/02/20 21:14 Zolpidem Tartrate 5 Mg Tab PO 10 mg HS ALF Administration - Exam General Appearance: NAD, awake alert. negative: ill appearing Eye: anicteric sclera Heart: RRR, no murmur, no gallops, no rubs, normal peripheral pulses Respiratory: CTAB, no wheezes, no rales, no ronchi, normal chest expansion Gastrointestinal: soft, non-tender, normal bowel sounds, no guarding, no rigidity Skin: no rashes Neurological: no focal deficits Psychiatric: normal affect, A&O x 3 Hosp A/P (1) Acute respiratory failure with hypoxia Code(s): J96.01 - ACUTE RESPIRATORY FAILURE WITH HYPOXIA Status: Acute (2) Pneumonia due to COVID-19 virus Code(s): U07.1 - COVID-19; J12.82 - PNEUMONIA DUE TO CORONAVIRUS DISEASE 2019 Status: Acute (3) Pericardial effusion Code(s): I31.3 - PERICARDIAL EFFUSION (NONINFLAMMATORY) Status: Acute (4) Nausea & vomiting Code(s): R11.2 - NAUSEA WITH VOMITING, UNSPECIFIED Status: Acute (5) Hypokalemia Code(s): E87.6 - HYPOKALEMIA Status: Acute (6) History of breast cancer Code(s): Z85.3 - PERSONAL HISTORY OF MALIGNANT NEOPLASM OF BREAST Status: Chronic - Plan Plan: Acute hypoxia secondary to COVID penumonia (sats of 86% on RA on arrival to ED) Not a candidate for remdesivir, testing Covid + on 10/17/2020. Sp02 96% on 2L NC. - stable since admission Continue IV abx, steroids, Albuterol inhalers Continue Vitamin C, Zinc, and vitamin D, mucinex-DM Monitor inflammatory markers Check to see if qualifies for Home O2 Consult CM to set up home 02 if qualifies. Consult ID for recommendations. Blood CX no growth. Trace pericardial effusion appears stable. Consider US/echo if worsening SOB. Will likely need to Follow up with cardiology outpatient. Nausea/Vomiting Zofran prn Hypokalemia Currently 3.3 Give 40 mEQ KCL Mag 2.2 Continue Famotidine for GI prophylaxis. Continue LMWH for DVT prophylaxis. CODE STATUS FULL Discussed with attending physician, agrees with plan of care.
[2020-11-03] MEDS: Enoxaparin Sodium 40 MG/0.4 ML SYRINGE SC SCH (08:37)
[2020-11-03] MEDS: Cholecalciferol 1,000 UNITS (25 MCG) TAB PO SCH (08:38)
[2020-11-03] MEDS: Famotidine/PF 20 mg/2ml Vial SLOW IVP SCH ×2 (08:38→21:25)
[2020-11-03] MEDS: Zinc Sulfate 220 MG CAP PO SCH (08:38)
[2020-11-03] MEDS: Dexamethasone 4 mg/ml Vial SLOW IVP SCH (08:38)
[2020-11-03] MEDS: Ascorbic Acid 500 mg Chewable Tablet PO SCH (08:38)
[2020-11-03] MEDS: Ondansetron PF 4 MG/2 ML Vial IVP PRN (08:55)
[2020-11-03 08:57] LABS: Band 6 % (5-11); Lymphocytes 18 % (21-51); MDiff Complete? YES; Monocytes 12 % (0-10); Neutrophil 60 % (42-75); Platelet Morphology Comment Appears Increased; RBC Morphology Normal; Reactive Lymphocytes 4 % (0-10)
[2020-11-03] MEDS ORDERED: Potassium Chloride 20 MEQ TAB PO SCH (09:45)
[2020-11-03] MEDS: cefTRIAXone\\ROCEPHIN 1 GM in Sodium Chloride 0.9% 100 ML IVPB SCH (14:11)
--- NOTE | 2020-11-03 15:50 | CON ---
DATE OF CONSULTATION: 11/03/2020 REASON FOR CONSULTATION: SARS-CoV2 infection. HISTORY OF PRESENT ILLNESS: A 70-year-old who has a history of breast cancer in remission with about 2 weeks' history of SARS-CoV2 infection, worsening symptoms. On arrival, she was saturating 86% on room air and went up to 98% to 99% on 2 L and she was having gastrointestinal issues on admission. CTA of chest demonstrated scattered mild to moderate ground-glass opacities and she has received ceftriaxone, azithromycin, Decadron. Currently, she is sitting by the bedside. She is feeling better, asking when she can go home. No headaches. No more vomiting or diarrhea. No abdominal pain. No hemoptysis. PAST MEDICAL HISTORY: Breast cancer, in remission; neuroma, left foot. PAST SURGICAL HISTORY: Lumpectomy. SOCIAL HISTORY: Retired. Never smoker. Lives in the area. ALLERGIES: NONE. FAMILY HISTORY: had COVID but has recovered already. MEDICATIONS: Include 1. Azithromycin. 2. Rocephin. 3. Decadron. 4. P.r.n. medications. PHYSICAL EXAMINATION: VITAL SIGNS: She has been afebrile and she is saturating 100% now with 2 L, respiratory rate 17, BP 120/70. SKIN: Normal. No lymphadenopathy. HEENT: Ocular movements normal. Sclerae are normal. Oral cavity normal. NECK: Supple. LUNGS: With fairly clear breath sounds. HEART: S1, S2, regular rate. ABDOMEN: Soft, not distended or tender. No ascites. No bladder distention. EXTREMITIES: Moves all extremities equally. NEUROLOGIC: Cognitive function appears to be intact. LABORATORY DATA: WBC count 8.3, hemoglobin 12.5, platelets 562 with 18% lymphocytes. Creatinine 0.64. Ferritin 199. CRP is 4.64. Microbiology negative. ASSESSMENT: Moderate SARS-CoV2 pneumonia with clear-cut improvement on Decadron. Discontinue Rocephin and azithromycin. At this stage of the game, I think there is little chance that she is going to deteriorate and maybe she will be able to go home in the next 48 hours. Job ID: [id number]
[2020-11-03] MEDS: Zolpidem Tartrate 5 MG TAB PO SCH (21:25)
[2020-11-04] MEDS: Ondansetron PF 4 MG/2 ML Vial IVP PRN (03:09)
[2020-11-04] MEDS: Benzonatate 100 MG CAP PO PRN ×2 (03:09→13:18)
[2020-11-04] MEDS ORDERED: Loperamide HCl 2 MG CAP PO PRN ×2 (03:48)
[2020-11-04 06:36] LABS: Anion Gap 12 mmol/L (10-20); BUN (Urea Nitrogen) 12 mg/dL (9.8-20.1); Calc. Creatinine Clearance 76 mL/min (70-130); Calcium 8.3 mg/dL (7.8-10.44); Carbon Dioxide 27 mmol/L (23-31); Chloride 101 mmol/L (98-107); Glucose 89 mg/dL (80-115); Sodium 136 mmol/L (136-145)
[2020-11-04 06:39] LABS: Band 6 % (5-11); Hemoglobin 12.4 g/dL (12.0-16.0); Lymphocytes 29 % (21-51); MDiff Complete? YES; Mean Corpuscular HGB CONC 33.4 g/dL (32.0-36.0); Mean Corpuscular Hemoglobin 30.2 pg (27.0-31.0); Mean Corpuscular Volume 90.3 fL (78.0-98.0); Mean Platelet Volume 7.2 fL (7.4-10.4); Metamyelocyte 4 % (0-0); Monocytes 8 % (0-10); Neutrophil 53 % (42-75); Platelet Count 575 thou/uL (130-400); Platelet Morphology Comment Appears Increased; RBC Distribution Width 12.5 % (11.5-14.5); Red Blood Cell (RBC) Count 4.12 mill/uL (4.20-5.40); White Blood Cell (WBC) Count 7.9 thou/uL (4.8-10.8)
[2020-11-04] MEDS: Zinc Sulfate 220 MG CAP PO SCH (08:49)
[2020-11-04] MEDS: Dexamethasone 4 mg/ml Vial SLOW IVP SCH (08:50)
[2020-11-04] MEDS: Ascorbic Acid 500 mg Chewable Tablet PO SCH (08:51)
[2020-11-04] MEDS: Cholecalciferol 1,000 UNITS (25 MCG) TAB PO SCH (08:52)
[2020-11-04] MEDS: Famotidine/PF 20 mg/2ml Vial SLOW IVP SCH (08:54)
[2020-11-04] MEDS: Enoxaparin Sodium 40 MG/0.4 ML SYRINGE SC SCH (08:54)
--- NOTE | 2020-11-04 13:04 | PDOC.HOSPP ---
- Subjective Encounter Date: 11/04/20 (f/u covid pneumonia) Encounter Time: 13:02 Subjective: Pt reports she feels better, a little short of breath with activity. She's had diarrhea with the last episode at 6 am today. she denies any n/v/abd pain or chest pain. - Objective Vital Signs & Weight: Vital Signs (12 hours) Temp Pulse Resp BP BP Pulse Ox 11/04/20 11:26 98.1 F 71 16 111/74 94 L 11/04/20 08:00 98 11/04/20 07:45 98.1 F 68 16 116/74 89 L 11/04/20 04:00 98.5 F 66 18 145/79 H 99 Weight Admit Weight 128 lb 11.2 oz Weight 128 lb 11.2 oz I&O: 11/03/20 11/04/20 11/05/20 06:59 06:59 06:59 Intake Total 100 360 Balance 100 360 Result Diagrams: 11/04/20 06:01 11/04/20 06:01 Hospitalist ROS - Medication Medications: Active Medications Generic Name Dose Route Start Last Admin Trade Name Freq PRN Reason Stop Dose Admin Acetaminophen 650 mg 11/01/20 16:55 11/02/20 09:16 Acetaminophen 325 Mg Tab PO 650 mg Q4H PRN Administration Headache/Fever/Mild Pain (1-3) Ascorbic Acid 1,000 mg 11/02/20 09:00 11/04/20 08:51 Ascorbic Acid 500 Mg Chewable Tablet PO 1,000 mg DAILY ALF Administration Benzonatate 100 mg 11/01/20 16:58 11/04/20 03:09 Benzonatate 100 Mg Cap PO 100 mg TIDPRN PRN Administration Cough Cholecalciferol 5,000 units 11/03/20 09:00 11/04/20 08:52 Cholecalciferol 1,000 Units (25 Mcg) Tab PO 5,000 units DAILY ALF Administration Dexamethasone 6 mg 11/02/20 09:00 11/04/20 08:50 Dexamethasone 4 Mg/Ml Vial SLOW IVP 6 mg DAILY ALF Administration Enoxaparin Sodium 40 mg 11/02/20 09:00 11/04/20 08:54 Enoxaparin Sodium 40 Mg/0.4 Ml Syringe SC 40 mg 09 ALF Administration Famotidine 20 mg 11/01/20 21:00 11/04/20 08:54 Famotidine/Pf 20 Mg/2ml Vial SLOW IVP 20 mg Q12HR ALF Administration Loperamide HCl 4 mg 11/04/20 03:48 11/04/20 04:05 Loperamide Hcl 2 Mg Cap PO 12/04/20 03:49 4 mg ONE PRN Administration Diarrhea/Loose Stools Ondansetron HCl 4 mg 11/01/20 23:31 11/04/20 03:09 Ondansetron Pf 4 Mg/2 Ml Vial IVP 4 mg Q6H PRN Administration Nausea/Vomiting Zinc Sulfate 220 mg 11/02/20 09:00 11/04/20 08:49 Zinc Sulfate 220 Mg Cap PO 220 mg DAILY ALF Administration Zolpidem Tartrate 10 mg 11/02/20 21:00 11/03/20 21:25 Zolpidem Tartrate 5 Mg Tab PO 10 mg HS ALF Administration - Exam General Appearance: NAD Heart: RRR, no murmur Respiratory: no wheezes, no rales, no ronchi Respiratory - other findings: decreased breath sounds at bases Gastrointestinal: soft, non-distended, normal bowel sounds Gastrointestinal - other findings: mild ttp, no rebound or guarding Extremities: no cyanosis, no clubbing, no edema Psychiatric: normal affect Hosp A/P (1) Hypothyroid Code(s): E03.9 - HYPOTHYROIDISM, UNSPECIFIED Status: Acute (2) Acute respiratory failure with hypoxia Code(s): J96.01 - ACUTE RESPIRATORY FAILURE WITH HYPOXIA Status: Acute (3) Pneumonia due to COVID-19 virus Code(s): U07.1 - COVID-19; J12.82 - PNEUMONIA DUE TO CORONAVIRUS DISEASE 2019 Status: Acute - Plan Acute resp failure secondary to COVID - appreciate ID consult -not a candidate for conv plasma or remdesivir - continue IV steroids -pt did not tolerate PO steroid as an outpatient - oxygen supplementation - desat study to arrange home oxygen -pt has a home inhaler - ICS/LABA - recommend she start taking this here with 2 puffs BID (home dose) Hypothyroid - continue home armor thyroid dvt prophy - lovenox gi prophy - famotidine while on steroids code status full anticipate d/c to home tomorrow after oxygen arranged. reviewed plan of care with patient, no questions or further needs at end of eval
[2020-11-04] MEDS: Zolpidem Tartrate 5 MG TAB PO SCH (20:29)
[2020-11-04] MEDS: Famotidine 20 MG TAB PO SCH (20:29)
[2020-11-05 07:11] LABS: Hemoglobin 12.6 g/dL (12.0-16.0); Mean Corpuscular HGB CONC 32.8 g/dL (32.0-36.0); Mean Corpuscular Hemoglobin 29.7 pg (27.0-31.0); Mean Corpuscular Volume 90.6 fL (78.0-98.0); Mean Platelet Volume 7.2 fL (7.4-10.4); Platelet Count 576 thou/uL (130-400); RBC Distribution Width 12.6 % (11.5-14.5); Red Blood Cell (RBC) Count 4.26 mill/uL (4.20-5.40); White Blood Cell (WBC) Count 7.7 thou/uL (4.8-10.8)
[2020-11-05 07:21] LABS: Anion Gap 13 mmol/L (10-20); Calcium 8.5 mg/dL (7.8-10.44); Carbon Dioxide 27 mmol/L (23-31); Chloride 100 mmol/L (98-107); Potassium 3.9 mmol/L (3.5-5.1); Sodium 136 mmol/L (136-145)
[2020-11-05 07:26] LABS: BUN (Urea Nitrogen) 12 mg/dL (9.8-20.1); Calc. Creatinine Clearance 74 mL/min (70-130); Glucose 87 mg/dL (80-115)
[2020-11-05] MEDS ORDERED: Thyroid 30 MG TAB PO SCH (09:00)
[2020-11-05 09:05] LABS: Band 6 % (5-11); Lymphocytes 24 % (21-51); MDiff Complete? YES; Metamyelocyte 2 % (0-0); Monocytes 6 % (0-10); Myelocyte 3 % (0-0); Neutrophil 48 % (42-75); Platelet Morphology Comment Appears Increased; Polychromasia SLIGHT = 2-3 cells (100X) (0-2/hpf); Reactive Lymphocytes 11 % (0-10)
[2020-11-05] MEDS: Ascorbic Acid 500 mg Chewable Tablet PO SCH (09:58)
[2020-11-05] MEDS: Cholecalciferol 1,000 UNITS (25 MCG) TAB PO SCH (09:58)
[2020-11-05] MEDS: Famotidine 20 MG TAB PO SCH (09:58)
[2020-11-05] MEDS: Dexamethasone 4 mg/ml Vial SLOW IVP SCH (10:02)
[2020-11-05] MEDS: Enoxaparin Sodium 40 MG/0.4 ML SYRINGE SC SCH (10:02)
[2020-11-05] MEDS: Zinc Sulfate 220 MG CAP PO SCH (10:02)
[2020-11-05] MEDS: Benzonatate 100 MG CAP PO PRN (10:07)
--- NOTE | 2020-11-05 10:48 | DIS ---
DATE OF ADMISSION: 11/01/2020 DATE OF DISCHARGE: 11/05/2020 MEDICATIONS: Reconciled at discharge. New medications are, 1. Tessalon Perles 100 mg three times daily as needed for cough. 2. Zinc 220 mg once daily. Medications to resume, 1. Vitamin C 1000 mg daily. 2. Vitamin D3 of 50,000 units as previously prescribed. 3. Magnesium 400 mg at bedtime. 4. Singulair 10 mg daily. 5. [place]-3 daily. 6. [place] Thyroid 30 mg daily. 7. Spiriva or the equivalent of its inhaled medication as previously prescribed. 8. Ambien 10 mg one at bedtime. Medication discontinued from the home medicine list is dexamethasone as this was causing nausea and vomiting. CONSULTANTS: Dr. Yi of Infectious Disease. FINAL DIAGNOSES: 1. Acute respiratory failure secondary to COVID pneumonia. 2. Trace pericardial effusion, needs followup in the outpatient setting. SECONDARY DIAGNOSIS: 1. Asthma. 2. Hypothyroid HISTORY OF PRESENT ILLNESS: Ms. Johns is a 70-year-old female with the above medical problems, who presented to the emergency room with a complaint of nausea, vomiting, and difficulty breathing. She started having symptoms on October 17, was diagnosed with COVID at that time. She had been seen in the emergency room, but did not require hospitalization. At the time that she re-presented, her room air oxygen level was 86%. She was started on oxygen, dexamethasone, antibiotics, and hospitalist called for admission. HOSPITAL COURSE: The patient was evaluated by Infectious Disease, Dr. Yi, who recommended proceeding with steroids only. There was no indication for further antibiotics, as the patient had received some in the outpatient setting. She was also continued on oxygen, and yesterday, restarted her home inhaled [id number] bronchodilator, which she uses for asthma. She has significantly improved through this hospitalization. The inflammatory markers continued to decline, and the patient is overall feeling well. She does continue to require 2 L of oxygen, which will be prescribed for the home setting. Followup will be needed with her primary care provider to determine titration off the oxygen. The patient overall doing well and does meet criteria for discharge with home oxygen. PHYSICAL EXAMINATION: VITAL SIGNS: Temperature 98.3, pulse 72, respirations 20, sat 92% on room air, and blood pressure 114/68. GENERAL: Awake, alert, responsive, not in apparent distress. Able to speak in full sentences. LUNGS: Clear to auscultation with good air movement. No audible wheezing, rhonchi, or rales. HEART: Normal S1 and S2. Regular rate and rhythm. No significant murmur. ABDOMEN: Soft, present bowel sounds. Nontender, nondistended. EXTREMITIES: No edema. JUAREZ FINDINGS AND TEST RESULTS: CBC today; 7.7, 12.6, 38.6, 576. D-dimer on November 01, 2.31; November 04, 1.14; November 05, 0.9. Renal panel; 136, 3.9, 100, 27, 12, 0.66, 87. CRP has declined from 1.29 yesterday, it is 0.82 today. Ferritin 168, previously it was 199. Troponin x3 were negative. Liver function tests on admission, T bilirubin 0.9, AST 32, ALT 32, alkaline phosphatase 291, total protein 7.4, albumin 3.6. CT angiogram performed on November 01 shows COVID pneumonia, minimal bilateral pleural effusions, trace pericardial effusion, negative for PE. Chest x-ray on November 01, multifocal pneumonia. Blood cultures negative from November 01. Followup is needed with the primary care provider to review this hospitalization, follow up on the trace pericardial effusion, assist with weaning down the oxygen and address any other needs. DIET: Regular. ACTIVITY: As tolerated. CODE STATUS: Full. DISCHARGE DISPOSITION: Home. Reviewed with the patient this hospitalization, the importance of followup and the seek care precautions. She demonstrates understanding. Total time coordinating discharge is 30 minutes. I am not sending the patient home with any further steroids as this was contributing to the nausea and vomiting prior to admission. Given that she is overall doing well and the inflammatory markers are decreasing, I do not think that it is required. Job ID: [id number] MTDD
[2020-11-05 14:43] VITALS: BP 113/71; TEMP 98.1
--- NOTE | 2020-11-10 14:50 | EKG ---
Test Reason : Blood Pressure : / mmHG Vent. Rate : 072 BPM Atrial Rate : 072 BPM P-R Int : 150 ms QRS Dur : 080 ms QT Int : 388 ms P-R-T Axes : 054 001 024 degrees QTc Int : 424 ms Normal sinus rhythm Normal ECG Confirmed by CARLOS NEGRO M.D. ([id number]), offline editor MANI BREWSTER ([id number]) on 11/10/2020 2:49:57 PM Referred By: Confirmed By:CARLOS NEGRO M.D.
--- NOTE | 2020-11-15 | PQF ---
CLINICAL DOCUMENTATION CLARIFICATION FORM: Dear : Hailey Camargo MD Date / Time: 11/15/2020 Please exercise your independent, professional judgment in responding to the clarification form. Clinical indicators are provided on the bottom of this form for your review Please check appropriate box(es): [ ] Covid Currently positive [ XX ] Pneumonia is sequela of COVID [ ] Other diagnosis (Please specify if any) [ ] Unable to determine Physician Signature: Date/Time: For continuity of documentation, please document condition throughout progress notes and discharge summary. Thank You. To be completed by CDI/Coding staff for physician review: Present Clinical Indicators - Signs / Symptoms / Labs Results and Location in Medical Record [x] Acute hypoxia secondary to COVID pneumonia Hospitalist PN on 11/02 [x] Not a candidate for remdesivir, testing COVID + on 10/17/20 Hospitalist PN on 11/02 [x] Pneumoia due to COVID virus Hospitalist PN on 11/02 [ ] Present Risk Factors Results and Location in Medical Record [x] Acute respiratory failure Hospitalist PN on 11/02 [x] Aged person 70 yrs H&P on 11/01 Present Treatments Results and Location in Medical Record [x] Dexamethasone Medication on 11/01 [x] Rocephin 1gm Medication on 11/01 [x] Azithromycin 500 mg Medication on 11/01 [ ] CDS/Insurance Sales Specialist Signature:SELMA Phone #: Date/Time: 11/15/2020 This is a permanent part of the Medical Record [facility]
== END 2020-11-05 14:33 | disposition home or self-care (01) | DRG 177 ==
LOC: ERS 12:48 → T4-B 16:31
PROVIDERS: ADMIT Internal Medicine; ATTEND Family Medicine
PROC: 8E0ZXY6 Isolation (ICD-10-PCS; principal; 2020-11-01)
DX: U07.1 COVID-19 (principal); J96.01 Acute respiratory failure with hypoxia; J12.82 Pneumonia due to coronavirus disease 2019; I31.3 Pericardial effusion (noninflammatory); E03.9 Hypothyroidism, unspecified; J45.909 Unspecified asthma, uncomplicated; E87.6 Hypokalemia; Z79.2 Long term (current) use of antibiotics; Z79.51 Long term (current) use of inhaled steroids; Z79.899 Other long term (current) drug therapy; Z85.3 Personal history of malignant neoplasm of breast; Z88.6 Allergy status to analgesic agent; Z98.890 Other specified postprocedural states
CPT/HCPCS: 36415; 71045; 71275; 80048; 80053; 81003; 82728; 83605; 83735; 83880; 84484; 85025; 85379; 86140; 87040; 93005; 96365; 96367; 96374; 96375; 96376; J0456; J0696; J1100; J1650; J1885; J2405; J2550; J3480; J3490; J7050; Q9967; S0028

== ENCOUNTER 2020-11-16 13:41 | Outpatient (CLI) | payer MEDICARE, OTHER | END 2020-11-16 13:42 | disposition home or self-care (01) | LOC: ULT 13:41 | PROVIDERS: ATTEND Physician Assistant | DX: I31.3 Pericardial effusion (noninflammatory) (principal); I08.3 Combined rheumatic disorders of mitral, aortic and tricuspid valves | CPT/HCPCS: 93306 ==

== ENCOUNTER 2020-11-26 09:29 | Outpatient (CLI) | payer MEDICARE, OTHER ==
--- NOTE | 2020-11-26 10:37 | RAD ---
PA AND LATERAL CHEST: HISTORY: Followup COVID pneumonia. COMPARISON: A 11/01/2020 exam. FINDINGS: Heart size is borderline. Extensive interstitial fibrotic-appearing lung changes are stable. IMPRESSION: Extensive bilateral lung changes which have appearance of some interstitial fibrotic lung change are stable as compared to the previous exam. POS: NELI
== END 2020-11-26 09:30 | disposition home or self-care (01) ==
LOC: BICRAD 09:29
PROVIDERS: ATTEND Physician Assistant
DX: U07.1 COVID-19 (principal); J12.82 Pneumonia due to coronavirus disease 2019; J96.00 Acute respiratory failure, unspecified whether with hypoxia or hypercapnia; J98.4 Other disorders of lung
CPT/HCPCS: 71046

== ENCOUNTER 2020-12-07 14:53 | Outpatient (CLI) | payer MEDICARE, OTHER ==
--- NOTE | 2020-12-11 08:30 | RAD ---
XR Knee Lt 4 View STANDARD HISTORY: Left knee pain FINDINGS: No fracture or dislocation is identified.
== END 2020-12-07 14:54 | disposition home or self-care (01) ==
LOC: BICRAD 14:53
PROVIDERS: ATTEND Internal Medicine
DX: M25.562 Pain in left knee (principal)

== ENCOUNTER 2020-12-24 08:22 | Outpatient (CLI) | payer MEDICARE, OTHER ==
--- NOTE | 2020-12-24 08:45 | RAD ---
CHEST 2 VIEWS: HISTORY: Dyspnea. COMPARISON: 11/26/2020 exam. FINDINGS: Heart size is within normal limits. Chronic lung changes are stable as compared to the prior examina tion. IMPRESSION: Extensive fibrotic lung change stable. POS: [facility]
== END 2020-12-24 08:23 | disposition home or self-care (01) ==
LOC: BICRAD 08:22
PROVIDERS: ATTEND Internal Medicine Pulmonary Disease
DX: R06.00 Dyspnea, unspecified (principal); J84.10 Pulmonary fibrosis, unspecified
CPT/HCPCS: 71046

== ENCOUNTER 2020-12-26 17:24 | Inpatient (IN) | payer MEDICARE, OTHER ==
[2020-12-26] MEDS ORDERED: Acetaminophen 500 MG TAB ONE (19:50)
[2020-12-26] MEDS ORDERED: Piperacillin/Tazobactam 4.5 GM VIAL ONE (19:50)
[2020-12-26 19:51] LABS: Hemoglobin 13.3 g/dL (12.0-16.0); Mean Corpuscular HGB CONC 32.8 g/dL (32.0-36.0); Mean Corpuscular Hemoglobin 30.8 pg (27.0-31.0); Mean Corpuscular Volume 93.7 fL (78.0-98.0); Mean Platelet Volume 8.7 fL (7.4-10.4); Platelet Count 187 thou/uL (130-400); RBC Distribution Width 12.5 % (11.5-14.5); Red Blood Cell (RBC) Count 4.34 mill/uL (4.20-5.40); White Blood Cell (WBC) Count 6.2 thou/uL (4.8-10.8)
[2020-12-26 20:10] LABS: Band 9 % (5-11); Eosinophils 1 % (0-10); Lymphocytes 18 % (21-51); MDiff Complete? YES; Monocytes 15 % (0-10); Neutrophil 48 % (42-75); RBC Morphology Normal; Reactive Lymphocytes 9 % (0-10)
[2020-12-26 20:14] LABS: ALT (SGPT) 24 U/L (8-55); AST (SGOT) 24 U/L (5-34); Albumin 4.8 g/dL (3.4-4.8); Alkaline Phosphatase 75 U/L (40-110); Anion Gap 15 mmol/L (10-20); BUN (Urea Nitrogen) 19 mg/dL (9.8-20.1); Bilirubin, Total 0.5 mg/dL (0.2-1.2); Calc. Creatinine Clearance 0 mL/min (70-130); Calcium 9.9 mg/dL (7.8-10.44); Carbon Dioxide 24 mmol/L (23-31); Chloride 103 mmol/L (98-107); Globulin 3.2 g/dL (2.4-3.5); Glucose 90 mg/dL (80-115); Potassium 3.7 mmol/L (3.5-5.1); Sodium 138 mmol/L (136-145)
[2020-12-26] MEDS ORDERED: Vancomycin 1 GM/200 ML BAG ONE (20:44)
[2020-12-26] MEDS ORDERED: diphenhydrAMINE 50 MG/ML VIAL ONE (21:44)
[2020-12-26] MEDS ORDERED: Morphine 4 MG/ML VIAL ONE (22:27)
[2020-12-27 00:18] VITALS: BMI 22.1
[2020-12-27] MEDS ORDERED: Morphine 2 MG/ML VIAL SLOW IVP SCH (01:15)
[2020-12-27] MEDS: Piperacillin/Tazobactam 4.5 GM in Sodium Chloride 0.9% 100 ML IVPB SCH ×3 (03:30→20:29)
[2020-12-27] MEDS: traMADol HCl 50 MG TAB PO PRN ×3 (04:45→20:36)
[2020-12-27 07:24] LABS: Hemoglobin 12.2 g/dL (12.0-16.0); Mean Corpuscular HGB CONC 32.7 g/dL (32.0-36.0); Mean Corpuscular Hemoglobin 30.9 pg (27.0-31.0); Mean Corpuscular Volume 94.5 fL (78.0-98.0); Mean Platelet Volume 9.2 fL (7.4-10.4); Platelet Count 161 thou/uL (130-400); RBC Distribution Width 12.6 % (11.5-14.5); Red Blood Cell (RBC) Count 3.96 mill/uL (4.20-5.40); White Blood Cell (WBC) Count 4.2 thou/uL (4.8-10.8)
[2020-12-27 07:29] LABS: Anion Gap 11 mmol/L (10-20); BUN (Urea Nitrogen) 18 mg/dL (9.8-20.1); Calc. Creatinine Clearance 59 mL/min (70-130); Calcium 8.8 mg/dL (7.8-10.44); Carbon Dioxide 27 mmol/L (23-31); Chloride 104 mmol/L (98-107); Glucose 91 mg/dL (80-115); Potassium 3.5 mmol/L (3.5-5.1); Sodium 138 mmol/L (136-145)
[2020-12-27 08:57] LABS: Band 6 % (5-11); Lymphocytes 32 % (21-51); MDiff Complete? YES; Monocytes 20 % (0-10); Neutrophil 42 % (42-75); Platelet Morphology Comment Appears Adequate; RBC Morphology Normal
[2020-12-27] MEDS ORDERED: Thyroid 30 MG TAB PO SCH (09:00)
[2020-12-27] MEDS ORDERED: Apixaban 5 MG TAB PO SCH (09:00)
[2020-12-27] MEDS ORDERED: Non-Formulary Item 1 EACH (Fluticasone/Vilanterol [Breo Ellipta 200-25 Mcg Inh] 1 EACH Bl INH SCH (09:00)
[2020-12-27] MEDS ORDERED: VANCOMYCIN 1.25 GM/250 ML BAG IVPB SCH (09:00)
[2020-12-27] MEDS ORDERED: PARoxetine 20 MG TAB PO SCH ×2 (09:00→21:00)
[2020-12-27] MEDS: Anastrozole 1 MG TAB PO SCH (09:54)
[2020-12-27] MEDS: Montelukast Sodium 10 mg Tablet PO SCH (09:56)
[2020-12-27] MEDS: Fish Oil 1,000 MG CAP PO SCH (09:58)
[2020-12-27] MEDS: Vancomycin HCl 750 MG in Sodium Chloride 0.9% 250 ML 250 ML IVPB SCH ×2 (10:51→20:29)
[2020-12-27] MEDS: Mometasone 200 MCG/Formoterol 5 MCG 120 PUFF INHALER INH SCH (18:20)
[2020-12-27] MEDS: Zolpidem Tartrate 5 MG TAB PO SCH (20:28)
[2020-12-27] MEDS: PAROXETINE PO SCH (20:28)
[2020-12-27] MEDS ORDERED: PAROXETINE MESYLATE 7.5 MG PO SCH (21:00)
[2020-12-28] MEDS: Acetaminophen 325 MG TAB PO PRN ×4 (00:56→21:08)
[2020-12-28] MEDS: traMADol HCl 50 MG TAB PO PRN ×3 (00:57→19:52)
[2020-12-28] MEDS: Piperacillin/Tazobactam 4.5 GM in Sodium Chloride 0.9% 100 ML IVPB SCH ×3 (04:54→19:52)
[2020-12-28] MEDS: Apixaban 5 MG TAB PO SCH ×2 (08:46→19:57)
[2020-12-28] MEDS: Anastrozole 1 MG TAB PO SCH (08:46)
[2020-12-28] MEDS: Thyroid 30 MG TAB PO SCH (08:46)
[2020-12-28] MEDS: Montelukast Sodium 10 mg Tablet PO SCH (08:47)
[2020-12-28] MEDS: Fish Oil 1,000 MG CAP PO SCH (08:47)
[2020-12-28] MEDS: Mometasone 200 MCG/Formoterol 5 MCG 120 PUFF INHALER INH SCH ×2 (08:52→19:47)
[2020-12-28 08:53] LABS: Vancomycin, Trough 11.9 ug/mL
[2020-12-28] MEDS: Vancomycin HCl 750 MG in Sodium Chloride 0.9% 250 ML 250 ML IVPB SCH ×2 (09:37→21:09)
[2020-12-28] MEDS: Zolpidem Tartrate 5 MG TAB PO SCH (19:57)
[2020-12-28] MEDS: PAROXETINE PO SCH (19:57)
[2020-12-29] MEDS: Piperacillin/Tazobactam 4.5 GM in Sodium Chloride 0.9% 100 ML IVPB SCH ×3 (04:27→20:04)
[2020-12-29] MEDS: Mometasone 200 MCG/Formoterol 5 MCG 120 PUFF INHALER INH SCH ×2 (07:09→19:48)
[2020-12-29] MEDS: Fish Oil 1,000 MG CAP PO SCH (07:48)
[2020-12-29] MEDS: Acetaminophen 325 MG TAB PO PRN ×3 (07:49→20:07)
[2020-12-29] MEDS: Anastrozole 1 MG TAB PO SCH (07:49)
[2020-12-29] MEDS: Apixaban 5 MG TAB PO SCH ×2 (07:49→20:06)
[2020-12-29] MEDS: Montelukast Sodium 10 mg Tablet PO SCH (07:49)
[2020-12-29] MEDS: Thyroid 30 MG TAB PO SCH (07:49)
[2020-12-29] MEDS: Saccharomyces boulardii 250 MG CAP PO SCH (07:49)
[2020-12-29] MEDS: Nystatin Cream 15 GM TUBE TOP PRN ×2 (07:50→20:09)
[2020-12-29 08:15] LABS: Vancomycin, Trough 10.8 ug/mL
[2020-12-29] MEDS: Vancomycin 1 GM in Premix Bag 1 BAG IVPB SCH ×2 (08:53→21:32)
[2020-12-29] MEDS: Ondansetron PF 4 MG/2 ML Vial IVP PRN (11:03)
[2020-12-29] MEDS: PAROXETINE PO SCH (20:04)
[2020-12-29] MEDS: Zolpidem Tartrate 5 MG TAB PO SCH (20:07)
[2020-12-30] MEDS: Piperacillin/Tazobactam 4.5 GM in Sodium Chloride 0.9% 100 ML IVPB SCH ×2 (04:06→10:55)
[2020-12-30] MEDS: Mometasone 200 MCG/Formoterol 5 MCG 120 PUFF INHALER INH SCH (06:11)
[2020-12-30 07:47] LABS: Hemoglobin 13.9 g/dL (12.0-16.0); Mean Corpuscular HGB CONC 32.3 g/dL (32.0-36.0); Mean Corpuscular Hemoglobin 29.8 pg (27.0-31.0); Mean Corpuscular Volume 92.4 fL (78.0-98.0); RBC Distribution Width 12.4 % (11.5-14.5); Red Blood Cell (RBC) Count 4.66 mill/uL (4.20-5.40)
[2020-12-30 07:58] LABS: ALT (SGPT) 53 U/L (8-55); AST (SGOT) 51 U/L (5-34); Albumin 4.4 g/dL (3.4-4.8); Alkaline Phosphatase 75 U/L (40-110); Anion Gap 12 mmol/L (10-20); BUN (Urea Nitrogen) 11 mg/dL (9.8-20.1); Bilirubin, Total 0.7 mg/dL (0.2-1.2); Calc. Creatinine Clearance 58 mL/min (70-130); Calcium 9.2 mg/dL (7.8-10.44); Carbon Dioxide 29 mmol/L (23-31); Chloride 103 mmol/L (98-107); Glucose 110 mg/dL (80-115); Potassium 3.9 mmol/L (3.5-5.1); Protein, Total 7.4 g/dL (5.8-8.1); Sodium 140 mmol/L (136-145)
[2020-12-30] MEDS: Thyroid 30 MG TAB PO SCH (08:04)
[2020-12-30] MEDS: Montelukast Sodium 10 mg Tablet PO SCH (08:04)
[2020-12-30] MEDS: Ondansetron PF 4 MG/2 ML Vial IVP PRN (08:04)
[2020-12-30] MEDS: Acetaminophen 325 MG TAB PO PRN ×2 (08:04→15:09)
[2020-12-30] MEDS: Saccharomyces boulardii 250 MG CAP PO SCH (08:04)
[2020-12-30] MEDS: Apixaban 5 MG TAB PO SCH (08:04)
[2020-12-30] MEDS: Anastrozole 1 MG TAB PO SCH (08:04)
[2020-12-30] MEDS: Fish Oil 1,000 MG CAP PO SCH (08:04)
[2020-12-30] MEDS: Nystatin Cream 15 GM TUBE TOP PRN (08:09)
[2020-12-30] MEDS: Vancomycin 1 GM in Premix Bag 1 BAG IVPB SCH (08:11)
[2020-12-30 08:16] LABS: Band 2 % (5-11); Eosinophils 2 % (0-10); Lymphocytes 24 % (21-51); MDiff Complete? YES; Mean Platelet Volume 8.8 fL (7.4-10.4); Monocytes 14 % (0-10); Neutrophil 50 % (42-75); Platelet Count 181 thou/uL (130-400); Platelet Morphology Comment Appears Adequate; Reactive Lymphocytes 6 % (0-10); White Blood Cell (WBC) Count 2.7 thou/uL (4.8-10.8)
[2020-12-30 15:07] VITALS: BP 149/68; TEMP 98.6
== END 2020-12-30 15:53 | disposition home or self-care (01) | DRG 601 ==
LOC: ERS 17:24 → T4-B 22:14
PROVIDERS: ADMIT Student in an Organized Health Care Education/Training Program; ATTEND Internal Medicine
PROC: 0H95XZZ Drainage of Chest Skin, External Approach (ICD-10-PCS; principal; 2020-12-28)
DX: N61.1 Abscess of the breast and nipple (principal); Z85.3 Personal history of malignant neoplasm of breast; Z86.718 Personal history of other venous thrombosis and embolism; Z79.01 Long term (current) use of anticoagulants; Z88.5 Allergy status to narcotic agent; E78.5 Hyperlipidemia, unspecified; E03.9 Hypothyroidism, unspecified; Z92.3 Personal history of irradiation; R06.00 Dyspnea, unspecified; J84.10 Pulmonary fibrosis, unspecified
CPT/HCPCS: 36415; 71046; 71275; 80048; 80053; 80202; 85025; 87070; 87205; 96365; 96367; 96375; J1200; J2270; J2405; J2543; J3370; J3490; J7050; Q9967

== ENCOUNTER 2021-02-06 19:05 | Inpatient (IN) | payer MEDICARE, OTHER ==
[2021-02-06 22:04] LABS: Hemoglobin 13.5 g/dL (12.0-16.0); Mean Corpuscular HGB CONC 32.4 g/dL (32.0-36.0); Mean Corpuscular Hemoglobin 30.1 pg (27.0-31.0); RBC Distribution Width 12.2 % (11.5-14.5); Red Blood Cell (RBC) Count 4.47 mill/uL (4.20-5.40)
[2021-02-06 22:15] LABS: ALT (SGPT) 25 U/L (8-55); AST (SGOT) 25 U/L (5-34); Albumin 4.8 g/dL (3.4-4.8); Alkaline Phosphatase 92 U/L (40-110); Anion Gap 14 mmol/L (10-20); BUN (Urea Nitrogen) 20 mg/dL (9.8-20.1); Bilirubin, Total Less than 0.2 mg/dL (0.2-1.2); Calc. Creatinine Clearance 0 mL/min (70-130); Calcium 9.8 mg/dL (7.8-10.44); Carbon Dioxide 26 mmol/L (23-31); Chloride 103 mmol/L (98-107); Globulin 3.2 g/dL (2.4-3.5); Glucose 111 mg/dL (80-115); Potassium 4.8 mmol/L (3.5-5.1); Sodium 138 mmol/L (136-145)
[2021-02-06] MEDS ORDERED: Piperacillin/Tazobactam 3.375 GM VIAL ONE (22:17)
[2021-02-06] MEDS ORDERED: Vancomycin 1 GM/200 ML BAG ONE (22:17)
[2021-02-06] MEDS ORDERED: Ondansetron PF 4 MG/2 ML Vial ONE (22:17)
[2021-02-06] MEDS ORDERED: Fentanyl 100 MCG/2 ML VIAL ONE (22:17)
[2021-02-06 22:29] LABS: Band 14 % (5-11); Lymphocytes 27 % (21-51); MDiff Complete? YES; Mean Platelet Volume 9.4 fL (7.4-10.4); Monocytes 9 % (0-10); Neutrophil 50 % (42-75); Platelet Count 195 thou/uL (130-400); White Blood Cell (WBC) Count 6.1 thou/uL (4.8-10.8)
[2021-02-06] MEDS ORDERED: diphenhydrAMINE 25 MG CAP ONE (23:34)
[2021-02-07] MEDS ORDERED: Ondansetron PF 4 MG/2 ML Vial IVP PRN (01:29)
[2021-02-07] MEDS ORDERED: Senokot S 8.6-50 MG TAB PO PRN (01:29)
[2021-02-07] MEDS ORDERED: Calcium Carbonate 500 MG ChewTAB PO PRN (01:29)
[2021-02-07 02:38] VITALS: BMI 22.3
[2021-02-07] MEDS: Acetaminophen 325 MG TAB PO PRN ×3 (02:44→19:55)
[2021-02-07] MEDS: Piperacillin/Tazobactam 3.375 GM in Sodium Chloride 0.9% 100 ML IVPB SCH ×3 (05:43→18:04)
[2021-02-07 06:29] LABS: Hemoglobin 12.9 g/dL (12.0-16.0); Mean Corpuscular HGB CONC 31.9 g/dL (32.0-36.0); Mean Corpuscular Hemoglobin 29.8 pg (27.0-31.0); Mean Corpuscular Volume 93.5 fL (78.0-98.0); Mean Platelet Volume 9.6 fL (7.4-10.4); Platelet Count 173 thou/uL (130-400); RBC Distribution Width 12.2 % (11.5-14.5); Red Blood Cell (RBC) Count 4.32 mill/uL (4.20-5.40); White Blood Cell (WBC) Count 5.1 thou/uL (4.8-10.8)
[2021-02-07 06:36] LABS: Anion Gap 12 mmol/L (10-20); BUN (Urea Nitrogen) 19 mg/dL (9.8-20.1); Calc. Creatinine Clearance 53 mL/min (70-130); Calcium 9.6 mg/dL (7.8-10.44); Carbon Dioxide 28 mmol/L (23-31); Chloride 102 mmol/L (98-107); Glucose 98 mg/dL (80-115); Potassium 4.4 mmol/L (3.5-5.1); Sodium 138 mmol/L (136-145)
[2021-02-07] MEDS: Anastrozole 1 MG TAB PO SCH (08:59)
[2021-02-07] MEDS: Thyroid 30 MG TAB PO SCH (08:59)
[2021-02-07] MEDS: Saccharomyces boulardii 250 MG CAP PO SCH (08:59)
[2021-02-07] MEDS ORDERED: Saccharomyces boulardii 250 MG CAP PO SCH (09:00)
[2021-02-07] MEDS: Montelukast Sodium 10 mg Tablet PO SCH (09:00)
[2021-02-07 09:42] LABS: Band 3 % (5-11); Lymphocytes 33 % (21-51); MDiff Complete? YES; Monocytes 10 % (0-10); Neutrophil 53 % (42-75); RBC Morphology Normal
[2021-02-07 10:08] LABS: SARS-CoV-2 PCR by NAA Not Detected (NotDetected)
[2021-02-07] MEDS: Vancomycin HCl 750 MG in Sodium Chloride 0.9% 250 ML 250 ML IVPB SCH ×2 (10:20→23:06)
[2021-02-07] MEDS ORDERED: Fentanyl 100 MCG/2 ML VIAL SLOW IVP PRN (10:50)
[2021-02-07] MEDS ORDERED: traMADol HCl 50 MG TAB PO PRN (11:36)
[2021-02-07] MEDS ORDERED: cloNIDine 0.1 MG TAB PO PRN (11:36)
[2021-02-07] MEDS ORDERED: Sodium Bicarbonate 2.5 MEQ/5 ML VIAL ONE (13:56)
[2021-02-07] MEDS: Zolpidem Tartrate 5 MG TAB PO SCH (20:02)
[2021-02-07] MEDS: Apixaban 5 MG TAB PO SCH (20:02)
[2021-02-07] MEDS ORDERED: Vancomycin 1 GM in Premix Bag 1 BAG IVPB SCH (23:00)
[2021-02-08] MEDS: Piperacillin/Tazobactam 3.375 GM in Sodium Chloride 0.9% 100 ML IVPB SCH ×3 (00:44→13:04)
[2021-02-08] MEDS: Acetaminophen 325 MG TAB PO PRN ×3 (06:01→20:48)
[2021-02-08] MEDS: Ondansetron ODT 4 MG TAB PO PRN ×2 (06:27→13:04)
[2021-02-08] MEDS: Anastrozole 1 MG TAB PO SCH (09:35)
[2021-02-08] MEDS: Saccharomyces boulardii 250 MG CAP PO SCH (09:36)
[2021-02-08] MEDS: Montelukast Sodium 10 mg Tablet PO SCH (09:36)
[2021-02-08] MEDS: Thyroid 30 MG TAB PO SCH (09:36)
[2021-02-08] MEDS: Apixaban 5 MG TAB PO SCH ×2 (09:36→20:49)
[2021-02-08 10:21] LABS: Hemoglobin 13.7 g/dL (12.0-16.0); Mean Corpuscular HGB CONC 32.5 g/dL (32.0-36.0); Mean Corpuscular Hemoglobin 30.6 pg (27.0-31.0); Mean Corpuscular Volume 94.2 fL (78.0-98.0); Mean Platelet Volume 9.1 fL (7.4-10.4); Platelet Count 167 thou/uL (130-400); Red Blood Cell (RBC) Count 4.48 mill/uL (4.20-5.40); White Blood Cell (WBC) Count 4.1 thou/uL (4.8-10.8)
[2021-02-08 10:39] LABS: Anion Gap 12 mmol/L (10-20); BUN (Urea Nitrogen) 13 mg/dL (9.8-20.1); Calc. Creatinine Clearance 57 mL/min (70-130); Calcium 8.6 mg/dL (7.8-10.44); Carbon Dioxide 28 mmol/L (23-31); Chloride 102 mmol/L (98-107); Glucose 107 mg/dL (80-115); Potassium 3.7 mmol/L (3.5-5.1); Sodium 138 mmol/L (136-145); Vancomycin, Trough 9.9 ug/mL
[2021-02-08 11:25] LABS: Band 1 % (5-11); Lymphocytes 32 % (21-51); MDiff Complete? YES; Monocytes 19 % (0-10); Neutrophil 48 % (42-75); RBC Morphology Normal
[2021-02-08] MEDS: Vancomycin HCl 750 MG in Sodium Chloride 0.9% 250 ML 250 ML IVPB SCH (11:56)
[2021-02-08] MEDS ORDERED: Vancomycin 1 GM in Premix Bag 1 BAG IVPB SCH (12:00)
[2021-02-08] MEDS: Zolpidem Tartrate 5 MG TAB PO SCH (20:49)
[2021-02-09 08:19] VITALS: TEMP 97.9
[2021-02-09] MEDS: Thyroid 30 MG TAB PO SCH (08:46)
[2021-02-09] MEDS: Saccharomyces boulardii 250 MG CAP PO SCH (08:46)
[2021-02-09] MEDS: Acetaminophen 325 MG TAB PO PRN (08:46)
[2021-02-09] MEDS: Apixaban 5 MG TAB PO SCH (08:46)
[2021-02-09] MEDS: Montelukast Sodium 10 mg Tablet PO SCH (08:46)
[2021-02-09] MEDS: Anastrozole 1 MG TAB PO SCH (08:46)
[2021-02-09 12:09] VITALS: BP 127/74
== END 2021-02-09 13:27 | disposition home or self-care (01) | DRG 601 ==
LOC: ERS 19:05 → SURG B 02-07 00:49
PROVIDERS: ADMIT Student in an Organized Health Care Education/Training Program; ATTEND Internal Medicine
PROC: 0H9U3ZZ Drainage of Left Breast, Percutaneous Approach (ICD-10-PCS; principal; 2021-02-07)
DX: N61.0 Mastitis without abscess (principal); E03.9 Hypothyroidism, unspecified; J45.20 Mild intermittent asthma, uncomplicated; G47.00 Insomnia, unspecified; E78.5 Hyperlipidemia, unspecified; R23.2 Flushing; Z86.16 Personal history of COVID-19; Z85.3 Personal history of malignant neoplasm of breast; Z88.5 Allergy status to narcotic agent; Z86.718 Personal history of other venous thrombosis and embolism
CPT/HCPCS: 36415; 76942; 80048; 80053; 80202; 85025; 87070; 87077; 87186; 87205; 87635; 96365; 96367; 96375; J2405; J2543; J3010; J3370; J3490; J7050; Q0162; Q0163; U0003; U0005

== ENCOUNTER 2021-05-31 13:35 | Outpatient (CLI) | payer MEDICARE, OTHER | END 2021-05-31 13:36 | disposition home or self-care (01) | LOC: BICMAMMO 13:35 | PROVIDERS: ATTEND Surgery | DX: C50.919 Malignant neoplasm of unspecified site of unspecified female breast (principal) | CPT/HCPCS: 77066; G0279 ==

== ENCOUNTER 2022-03-19 12:55 | Outpatient (CLI) | payer MEDICARE, OTHER | END 2022-03-19 12:56 | disposition home or self-care (01) | LOC: BICMAMMO 12:55 | PROVIDERS: ATTEND Obstetrics & Gynecology | DX: Z13.820 Encounter for screening for osteoporosis (principal) | CPT/HCPCS: 77080 ==

== ENCOUNTER 2022-07-08 13:38 | Outpatient (CLI) | payer MEDICARE, OTHER | END 2022-07-08 13:39 | disposition home or self-care (01) | LOC: ULT 13:38 | PROVIDERS: ATTEND Nurse Practitioner Family | DX: M79.604 Pain in right leg (principal); R20.0 Anesthesia of skin; R20.2 Paresthesia of skin | CPT/HCPCS: 93923 ==

== ENCOUNTER 2022-08-07 08:14 | Outpatient (CLI) | payer MEDICARE, OTHER | END 2022-08-07 08:15 | disposition home or self-care (01) | LOC: BICMAMMO 08:14 | PROVIDERS: ATTEND Radiology Radiation Oncology | DX: Z08 Encounter for follow-up examination after completed treatment for malignant neoplasm (principal); Z85.3 Personal history of malignant neoplasm of breast | CPT/HCPCS: 77066; G0279 ==

== ENCOUNTER 2023-01-20 13:16 | Outpatient (CLI) | payer MEDICARE, OTHER | END 2023-01-20 13:17 | disposition home or self-care (01) | LOC: BICRAD 13:16 | PROVIDERS: ATTEND Nurse Practitioner Family | DX: R05.3 Chronic cough (principal) | CPT/HCPCS: 71046 ==

== ENCOUNTER 2023-02-10 12:46 | Outpatient (CLI) | payer MEDICARE, OTHER | END 2023-02-10 12:47 | disposition home or self-care (01) | LOC: ULT 12:46 | PROVIDERS: ATTEND Nurse Practitioner Family | DX: M79.662 Pain in left lower leg (principal) ==

== ENCOUNTER 2023-05-21 12:30 | Outpatient (CLI) | payer MEDICARE, OTHER | END 2023-05-21 12:31 | disposition home or self-care (01) | LOC: RAD 12:30 | PROVIDERS: ATTEND Family Medicine | DX: M25.572 Pain in left ankle and joints of left foot (principal) | CPT/HCPCS: 36415; 83520; 85652; 86038; 86200; 86225 ==

== ENCOUNTER 2023-08-11 13:03 | Outpatient (CLI) | payer MEDICARE, OTHER | END 2023-08-11 13:04 | disposition home or self-care (01) | LOC: BICMAMMO 13:03 | PROVIDERS: ATTEND Radiology Radiation Oncology | DX: Z08 Encounter for follow-up examination after completed treatment for malignant neoplasm (principal); Z85.3 Personal history of malignant neoplasm of breast | CPT/HCPCS: 77066; G0279 ==

== ENCOUNTER 2023-11-13 13:45 | Inpatient (IN) | payer MEDICARE, OTHER ==
[~2023-11-13 13:45] MED LIST: Iopamidol-370 76% 500 ML MDV (1 ML CHARGE) ONE
[2023-11-13 15:15] LABS: #Monocytes 2.9 thou/uL (0.11-0.59); #Neutrophils 11.6 thou/uL (1.40-6.50); %Basophils 0.1 % (0.0-1.0); %Eosinophils 0.1 % (0.0-10.0); %Neutrophils 70.7 % (42.0-75.0); Hematocrit 38.7 % (36.0-47.0); Hemoglobin 12.5 g/dL (12.0-16.0); Mean Corpuscular HGB CONC 32.3 g/dL (32.0-36.0); Mean Corpuscular Hemoglobin 29.7 pg (27.0-31.0); Mean Corpuscular Volume 91.9 fl (78.0-98.0); Mean Platelet Volume 11.9 fL (7.4-10.4); Platelet Count 134 10x3/uL (130-400); RBC Distribution Width 13.3 % (11.5-14.5); Red Blood Cell (RBC) Count 4.21 mill/uL (4.20-5.40); White Blood Cell (WBC) Count 16.4 10x3/uL (4.8-10.8)
[2023-11-13 15:45] LABS: ALT (SGPT) 10 U/L (8-55); AST (SGOT) 14 U/L (5-34); Albumin 3.8 g/dL (3.4-4.8); Alkaline Phosphatase 74 U/L (40-110); Anion Gap 12 mmol/L (10-20); BUN (Urea Nitrogen) 8 mg/dL (9.8-20.1); Bilirubin, Total 0.6 mg/dL (0.2-1.2); Calc. Creatinine Clearance 0 mL/min (70-130); Calcium 8.4 mg/dL (7.8-10.44); Carbon Dioxide 26 mmol/L (23-31); Chloride 102 mmol/L (98-107); Estimated GFR 85; Globulin 2.9 g/dL (2.4-3.5); Glucose 112 mg/dL (83-110); Lipase 13 U/L (8-78); Potassium 3.6 mmol/L (3.5-5.1); Protein, Total 6.7 g/dL (5.8-8.1); Sodium 136 mmol/L (136-145)
[2023-11-13] MEDS ORDERED: Communication Order-Pharmacy FS SCH (17:33)
[2023-11-13] MEDS: Ciprofloxacin Lactate/D5W 400 MG in Premix 1 BAG IVPB SCH (18:50)
[2023-11-13] MEDS: Sodium Chloride 0.9% 1,000 ML IV SCH (18:50)
[2023-11-13 19:53] VITALS: BMI 26.2
[2023-11-13] MEDS ORDERED: diphenhydrAMINE 25 MG CAP PO SCH (20:00)
[2023-11-13] MEDS: Montelukast Sodium 10 mg Tablet PO SCH (20:14)
[2023-11-13] MEDS: Acetaminophen 500 MG TAB PO SCH (20:14)
[2023-11-13] MEDS: metroNIDAZOLE 500 MG in Premix 1 BAG IVPB SCH (22:02)
[2023-11-14] MEDS: Sodium Chloride 0.9% 1,000 ML IV SCH ×2 (04:45→14:40)
[2023-11-14] MEDS: metroNIDAZOLE 500 MG in Premix 1 BAG IVPB SCH ×2 (05:55→14:39)
[2023-11-14] MEDS: Ciprofloxacin Lactate/D5W 400 MG in Premix 1 BAG IVPB SCH (05:55)
[2023-11-14] MEDS: Letrozole 2.5 MG TAB PO SCH (08:51)
[2023-11-14] MEDS: Thyroid 30 MG TAB PO SCH (08:52)
[2023-11-14] MEDS: Acetaminophen 500 MG TAB PO SCH ×3 (08:52→20:52)
[2023-11-14 12:02] LABS: #Eosinphils 0.1 thou/uL (0.0-0.7); #Monocytes 1.6 thou/uL (0.11-0.59); #Neutrophils 5.2 thou/uL (1.40-6.50); %Eosinophils 0.6 % (0.0-10.0); %Lymphocytes 13.9 % (21.0-51.0); %Monocytes 19.5 % (0.0-10.0); %Neutrophils 64.1 % (42.0-75.0); Hemoglobin 10.7 g/dL (12.0-16.0); Mean Corpuscular HGB CONC 32.4 g/dL (32.0-36.0); Mean Corpuscular Volume 92.4 fl (78.0-98.0); Mean Platelet Volume 11.9 fL (7.4-10.4); Platelet Count 120 10x3/uL (130-400); RBC Distribution Width 13.4 % (11.5-14.5); Red Blood Cell (RBC) Count 3.57 mill/uL (4.20-5.40); White Blood Cell (WBC) Count 8.1 10x3/uL (4.8-10.8)
[2023-11-14 12:17] LABS: Anion Gap 8 mmol/L (10-20); BUN (Urea Nitrogen) 5 mg/dL (9.8-20.1); Calc. Creatinine Clearance 84 mL/min (70-130); Calcium 8.2 mg/dL (7.8-10.44); Carbon Dioxide 26 mmol/L (23-31); Chloride 106 mmol/L (98-107); Estimated GFR 93; Glucose 118 mg/dL (83-110); Potassium 3.3 mmol/L (3.5-5.1); Sodium 137 mmol/L (136-145)
[2023-11-14] MEDS ORDERED: Dicyclomine 10 MG CAP PO SCH (13:45)
[2023-11-14] MEDS: Dicyclomine 10 MG CAP PO SCH ×2 (18:14→20:57)
[2023-11-14] MEDS: Montelukast Sodium 10 mg Tablet PO SCH (20:53)
[2023-11-14] MEDS: Citalopram 20 MG TAB PO SCH (20:53)
[2023-11-14] MEDS: Zolpidem Tartrate 5 MG TAB PO SCH (20:53)
[2023-11-15] MEDS: Sodium Chloride 0.9% 1,000 ML IV SCH ×2 (04:26→14:05)
[2023-11-15 07:46] LABS: #Neutrophils 3.3 thou/uL (1.40-6.50); %Eosinophils 0.7 % (0.0-10.0); %Lymphocytes 21.4 % (21.0-51.0); %Monocytes 16.9 % (0.0-10.0); %Neutrophils 58.9 % (42.0-75.0); Hematocrit 36.6 % (36.0-47.0); Hemoglobin 11.9 g/dL (12.0-16.0); Mean Corpuscular HGB CONC 32.5 g/dL (32.0-36.0); Mean Corpuscular Hemoglobin 29.6 pg (27.0-31.0); Mean Platelet Volume 12.2 fL (7.4-10.4); Platelet Count 144 10x3/uL (130-400); RBC Distribution Width 13.2 % (11.5-14.5); Red Blood Cell (RBC) Count 4.02 mill/uL (4.20-5.40); White Blood Cell (WBC) Count 5.6 10x3/uL (4.8-10.8)
[2023-11-15 08:04] LABS: Anion Gap 13 mmol/L (10-20); BUN (Urea Nitrogen) 4 mg/dL (9.8-20.1); Calc. Creatinine Clearance 87 mL/min (70-130); Calcium 8.5 mg/dL (7.8-10.44); Carbon Dioxide 26 mmol/L (23-31); Chloride 105 mmol/L (98-107); Estimated GFR 94; Glucose 87 mg/dL (83-110); Potassium 3.8 mmol/L (3.5-5.1); Sodium 140 mmol/L (136-145)
[2023-11-15] MEDS: Thyroid 30 MG TAB PO SCH (09:35)
[2023-11-15] MEDS: Acetaminophen 500 MG TAB PO SCH ×3 (09:36→20:28)
[2023-11-15] MEDS: Letrozole 2.5 MG TAB PO SCH (09:36)
[2023-11-15] MEDS: Dicyclomine 10 MG CAP PO SCH ×4 (09:36→20:27)
[2023-11-15] MEDS: Citalopram 20 MG TAB PO SCH (20:28)
[2023-11-15] MEDS: Zolpidem Tartrate 5 MG TAB PO SCH (20:28)
[2023-11-15] MEDS: Montelukast Sodium 10 mg Tablet PO SCH (20:28)
[2023-11-16] MEDS: Sodium Chloride 0.9% 1,000 ML IV SCH (01:26)
[2023-11-16 08:13] VITALS: TEMP 98
[2023-11-16] MEDS: Thyroid 30 MG TAB PO SCH (09:07)
[2023-11-16] MEDS: Dicyclomine 10 MG CAP PO SCH (09:08)
[2023-11-16] MEDS: Acetaminophen 500 MG TAB PO SCH (09:08)
[2023-11-16] MEDS: Letrozole 2.5 MG TAB PO SCH (09:08)
[2023-11-16 11:34] LABS: #Neutrophils 1.7 thou/uL (1.40-6.50); %Basophils 0.3 % (0.0-1.0); %Eosinophils 0.8 % (0.0-10.0); %Lymphocytes 25.9 % (21.0-51.0); %Monocytes 26.4 % (0.0-10.0); %Neutrophils 42.8 % (42.0-75.0); Hematocrit 36.1 % (36.0-47.0); Hemoglobin 11.7 g/dL (12.0-16.0); Manual Diff?? YES; Mean Corpuscular HGB CONC 32.4 g/dL (32.0-36.0); Mean Corpuscular Hemoglobin 29.8 pg (27.0-31.0); Mean Corpuscular Volume 92.1 fl (78.0-98.0); Platelet Count 123 10x3/uL (130-400); RBC Distribution Width 13.2 % (11.5-14.5); Red Blood Cell (RBC) Count 3.92 mill/uL (4.20-5.40); White Blood Cell (WBC) Count 3.9 10x3/uL (4.8-10.8)
[2023-11-16 11:55] LABS: Anion Gap 10 mmol/L (10-20); BUN (Urea Nitrogen) 5 mg/dL (9.8-20.1); Calc. Creatinine Clearance 88 mL/min (70-130); Calcium 8.6 mg/dL (7.8-10.44); Carbon Dioxide 25 mmol/L (23-31); Chloride 106 mmol/L (98-107); Estimated GFR 94; Glucose 108 mg/dL (83-110); Potassium 3.7 mmol/L (3.5-5.1); Sodium 137 mmol/L (136-145)
[2023-11-16 12:02] VITALS: BP 132/75
[2023-11-16 12:05] LABS: Band 6 % (5-11); Burr Cells SLIGHT = 2-5 cells HPF (0-1); CellaVision Operator ID LAB.KB; Eosinophils 1 % (0-10); Lymphocytes 29 % (21-51); Monocytes 13 % (0-10); Myelocyte 3 % (0-0); Neutrophil 47 % (42-75); Ovalocytes SLIGHT = 2-5 cells HPF (0-1); Platelet Adequacy Comment Platelets Decreased; Polychromasia SLIGHT = 2-3 cells HPF (0-2); Reactive Lymphocytes 1 % (0-10); Total Cell Count 100
== END 2023-11-16 12:31 | disposition home or self-care (01) | DRG 394 ==
LOC: ERS 13:45 → ERHOLD 16:56 → OBSVTOIN 16:56 → INTOOBSV 16:56 → T4-B 18:31
PROVIDERS: ADMIT Hospitalist; ATTEND Hospitalist
DX: K55.039 Acute (reversible) ischemia of large intestine, extent unspecified (principal); R18.8 Other ascites; E87.6 Hypokalemia; D72.829 Elevated white blood cell count, unspecified; D64.9 Anemia, unspecified; E03.9 Hypothyroidism, unspecified; Z92.21 Personal history of antineoplastic chemotherapy; Z88.5 Allergy status to narcotic agent; Z79.899 Other long term (current) drug therapy; Z98.890 Other specified postprocedural states; G43.909 Migraine, unspecified, not intractable, without status migrainosus; C50.912 Malignant neoplasm of unspecified site of left female breast; R15.2 Fecal urgency
CPT/HCPCS: 36415; 36416; 74174; 80048; 83605; 83690; 85025; 96360; 96361; 96374; 96375; 96376; G0378; J0744; J7050; Q9967

== ENCOUNTER 2023-12-05 20:41 | Emergency (ER) | payer MEDICARE, OTHER ==
[2023-12-05] MEDS ORDERED: Boostrix 0.5 ML (Tdap) VIAL (>/=7 yrs of age) ONE (21:48)
[2023-12-05] MEDS ORDERED: Acetaminophen 500 MG TAB ONE (22:43)
== END 2023-12-05 23:30 | disposition home or self-care (01) ==
LOC: ERS 20:41
DX: S09.90XA Unspecified injury of head, initial encounter (principal); S01.01XA Laceration without foreign body of scalp, initial encounter; W01.198A Fall on same level from slipping, tripping and stumbling with subsequent striking against other object, initial encounter; Z23 Encounter for immunization
CPT/HCPCS: 12002; 70450; 72125; 90471; 90715

== ENCOUNTER 2024-03-25 12:48 | Outpatient (CLI) | payer MEDICARE, OTHER | END 2024-03-25 12:49 | disposition home or self-care (01) | LOC: BICRAD 12:48 | PROVIDERS: ATTEND Nurse Practitioner Family | DX: J06.9 Acute upper respiratory infection, unspecified (principal); R09.89 Other specified symptoms and signs involving the circulatory and respiratory systems; R05.9 Cough, unspecified | CPT/HCPCS: 71046 ==

== ENCOUNTER 2024-05-19 09:10 | Outpatient (CLI) | payer MEDICARE, OTHER | END 2024-05-19 09:11 | disposition home or self-care (01) | LOC: BICRAD 09:10 | PROVIDERS: ATTEND Nurse Practitioner Family | DX: M79.10 Myalgia, unspecified site (principal); M47.816 Spondylosis without myelopathy or radiculopathy, lumbar region | CPT/HCPCS: 72072; 72100 ==

== ENCOUNTER 2024-08-12 13:08 | Outpatient (CLI) | payer MEDICARE, OTHER | END 2024-08-12 13:09 | disposition home or self-care (01) | LOC: BICMAMMO 13:08 | PROVIDERS: ATTEND Radiology Radiation Oncology | DX: C50.919 Malignant neoplasm of unspecified site of unspecified female breast (principal) | CPT/HCPCS: 77066; G0279 ==

== ENCOUNTER 2024-09-06 09:08 | Outpatient (CLI) | payer MEDICARE, OTHER | END 2024-09-06 09:09 | disposition home or self-care (01) | LOC: RAD 09:08 | PROVIDERS: ATTEND Internal Medicine Critical Care Medicine | DX: R06.00 Dyspnea, unspecified (principal) | CPT/HCPCS: 71046 ==

== ENCOUNTER 2025-08-15 08:00 | Outpatient (CLI) | payer MEDICARE, OTHER | END 2025-08-15 12:34 | disposition home or self-care (01) | LOC: BICMAMMO 08:00 | PROVIDERS: ATTEND Nurse Practitioner Family | DX: Z78.0 Asymptomatic menopausal state (principal) | CPT/HCPCS: 77080 ==